=== PATIENT | female | born 1940 | race Caucasian/White ===

== ENCOUNTER 2017-08-23 21:44 | Inpatient (IN) | payer MEDICARE, OTHER ==
[2017-08-23] MEDS ORDERED: Morphine VIAL* 4 MG/ML VIAL (1 ml vial) IV PRN (22:17)
[2017-08-23 22:38] LABS: Hematocrit 40 % (35-47); Hemoglobin 13.3 g/dl (12.0-16.0); Mean Corpuscular HGB Conc 33 g/dl (31-36); Mean Corpuscular Hemoglobin 30 pg (27-31); Mean Corpuscular Volume 91 fL (80-97); Mean Platelet Volume 7.6 um3 (7.4-10.4); Platelet Count 332 10^3/ul (150-450); Red Blood Count 4.43 10^6/ul (4.0-5.4); Red Cell Distribution Width 15 % (10.5-15)
[2017-08-23 22:50] LABS: EGFR Non-African American 35.4 (>60)
[2017-08-23 22:58] LABS: ABS Basophils 0.1 10^3/ul (0-0.2); ABS Eosinophils 0 10^3/ul (0-0.6); ABS Lymphocytes 0.6 10^3/ul (1.0-4.8); ABS Monocytes 1.4 10^3/ul (0-0.8); ABS Neutrophils 18.9 10^3/ul (1.5-7.7); ABS Nucleated RBC 0 10^3/ul; Eosinophil % 0.2 % (0-6); Lymphocyte % 2.9 % (25-47); Nucleated Red Blood Cells % 0
[2017-08-23] MEDS ORDERED: Iodixanol* (CONTRAST) 320 MG/ML 100 ML SDV IV ONE (23:00)
[2017-08-24] MEDS ORDERED: Ondansetron 40 MG VIAL* 2 MG/ML 20 ML VIAL IV PRN (02:48)
[2017-08-24] MEDS ORDERED: Acetaminophen TAB* 325 MG PO PRN (02:48)
[2017-08-24] MEDS: Heparin VIAL(*) 5000 UNITS/ML VIAL (FIVE THOUSAND) SUBCUT SCH ×3 (05:38→22:28)
[2017-08-24 05:48] LABS: ABS Basophils 0 10^3/ul (0-0.2); ABS Eosinophils 0 10^3/ul (0-0.6); ABS Lymphocytes 0.3 10^3/ul (1.0-4.8); ABS Monocytes 1.2 10^3/ul (0-0.8); ABS Neutrophils 19.9 10^3/ul (1.5-7.7); ABS Nucleated RBC 0 10^3/ul; Eosinophil % 0 % (0-6); Hematocrit 36 % (35-47); Lymphocyte % 1.2 % (25-47); Mean Corpuscular HGB Conc 33 g/dl (31-36); Mean Corpuscular Hemoglobin 30 pg (27-31); Mean Corpuscular Volume 91 fL (80-97); Mean Platelet Volume 7.6 um3 (7.4-10.4); Nucleated Red Blood Cells % 0; Platelet Count 281 10^3/ul (150-450); Red Blood Count 4.03 10^6/ul (4.0-5.4); Red Cell Distribution Width 15 % (10.5-15); White Blood Count 21.4 10^3/ul (3.5-10.8)
[2017-08-24] MEDS: Morphine VIAL* 4 MG/ML VIAL (1 ml vial) IV PRN ×2 (05:49→11:28)
[2017-08-24 06:18] LABS: EGFR Non-African American 33.8 (>60)
--- NOTE | 2017-08-24 07:35 | HP ---
CC: Louise Andino MD* HISTORY AND PHYSICAL: DATE OF ADMISSION: 08/24/17. TIME OF EVALUATION: 0200. PRIMARY CARE PHYSICIAN: Louise Andino MD. CHIEF COMPLAINT: Abdominal pain. HISTORY OF PRESENT ILLNESS: This is a 76-year-old female with a past medical history of COPD and recent stent graft placement to her abdominal aortic aneurysm, who presents to the emergency room with left lower quadrant pain. The patient states she has chronic constipation. She states she normally has a bowel movement one time a week. When she runs in to this issue, she takes laxatives. She takes a stool softener daily. Her last bowel movement was on . This morning she was concerned that she has still not had a bowel movement. She took some laxatives in the morning that did not help. After lunch, still no bowel movement. She took more laxatives, began having significant pain in her left lower quadrant, increasing gas. She does have a small stool, but no improvement in her pain. She came to the emergency room with worsening pain. She also had a large bowel movement. She states it was loose. In the emergency room, no improvement in her pain and she developed left hip pain radiating down to her foot that flaring up of her sciatica. She states she was just in [facility] on 08/12/17 for stent placement of her aortic aneurysm. She was discharged on 08/14/17 and was doing well. She was staying with her sister well recuperating when this all occurred. She did have some nausea, vomiting. She states she vomited four times. Decrease in appetite. No chest pain or shortness of breath. No bright red blood per rectum. No melena. She does state she is due for a colonoscopy, she has had one in the past. Otherwise, review of systems is negative. In the emergency room, the patient had labs, imaging. She was given morphine and referred to the hospitalist service for further evaluation. PAST MEDICAL HISTORY: 1. History of stent placement to the abdominal aortic aneurysm at [facility] done on per patient is 08/12/17. 2. History of constipation. 3. History of colitis. 4. Hypertension. 5. Hyperlipidemia. 6. COPD. 7. Arthritis. 8. Sciatica. 9. CKD. MEDICATIONS: 1. Hydrochlorothiazide 25 mg p.o. daily. 2. Tramadol 100 mg p.o. q.6 hours as needed. 3. Tizanidine 4 mg q.6 hours as needed. 4. Spironolactone 25 mg p.o. daily. 5. Simvastatin 20 mg at bedtime. 6. Oxybutynin 5 mg p.o. t.i.d. 7. Singulair 10 mg daily. 8. Lisinopril 5 mg daily. 9. Breo Ellipta one puff inhale daily. 10. Celexa 40 mg daily. 11. Atenolol 25 mg p.o. daily. 12. Aspirin 81 mg p.o. daily. 13. Albuterol 108 mcg inhaled daily as needed. ALLERGIES: WELLBUTRIN. FAMILY HISTORY: Father is from colon cancer at age 50 and mother from breast cancer. SOCIAL HISTORY: The patient normally lives at home. She states she does have some difficulty getting around, but is otherwise independent. She ambulates with a cane. Currently is staying with her sister while recuperating from her recent surgery at [facility]. She quit smoking five years ago. At that time , she smoked a pack per day for five years. No alcohol use or illicit drug use. She is a retired legal administrative secretary. Her healthcare proxy is her son, Fadi Sweet. She is . CODE STATUS: She confirms she is a DNR/DNI. We will complete the MOLST form this evening. REVIEW OF SYSTEMS: A 14-point review of systems as mentioned in the HPI, otherwise negative. PHYSICAL EXAMINATION GENERAL: No acute distress, resting comfortably. VITAL SIGNS: Temp 98.8, pulse rate 105, respiratory rate 18, oxygen saturation 94% on room air, and blood pressure 126/65. HEENT: Head: Normocephalic. Pupils are equal and reactive, anicteric. Oropharynx: Mucous membranes are moist. NECK: Supple, no adenopathy. RESPIRATORY: Diminished breath sounds. No wheezes, rhonchi, or rales. CARDIAC: Regular rate and rhythm. Soft systolic murmur more pronounced at the sternal base. ABDOMEN: Hypoactive bowel sounds, soft, mild firmness, tenderness in the left lower quadrant, more pronounced there than in the right region. No rebound or guarding. EXTREMITIES: Trace pretibial edema. +1 DPs. NEUROLOGIC: Alert and oriented x3. No gross focal neurologic deficits. LABORATORY DATA: White count 21, hemoglobin 13.3, hematocrit 40, platelets 332. Sodium 134, potassium 4.8, chloride 100, bicarb 23, BUN 31, creatinine 1.44. CRP is 34. Radiographic Data: A 4.0 cm ascending aortic aneurysm, status post stent graft placement through a 5 cm aortic aneurysm without inflammation. Small pleural effusion with right lower lobe atelectasis or pneumonia. Right renal atrophy may be secondary to renal artery stenosis. Mild diffuse colitis may be due to infection or inflammatory processes. Right-sided colonic pneumatosis considered very unlikely to represent bowel ischemia. ASSESSMENT AND PLAN: This is a 76-year-old female with a recent graft placement to her abdominal aortic aneurysm and history of constipation, presents to the emergency room with worsening left lower quadrant pain in the setting of loose stools, nausea and vomiting. 1. Left lower quadrant abdominal pain. Assessment and findings: Consistent with colitis. Concern is for C. diff colitis in the setting of recent hospitalization. Suspect that she may have had some prophylactic antibiotics for her surgery less likely ischemic. Based on the CAT scan findings, she does have an elevated white count and acute kidney injury. Plan: We will obtain a C. diff study. Once it is negative, consider empiric antibiotics if no improvement, we will continue her on IV fluids and repeat her labs in the morning. 2. Acute kidney injury. We do not have a recent creatinine on this patient. She does state she has a history of kidney problems. I suspect this is prerenal azotemia. We will continue fluids. Renally dose her medications. Continue to hold her hydrochlorothiazide and spironolactone and lisinopril. 3. Hypertension. As mentioned, hold her hydrochlorothiazide, spironolactone, and lisinopril. Continue her atenolol and aspirin. 4. Chronic obstructive pulmonary disease. Continue her inhaler regimen. 5. Hyperlipidemia. Continue with simvastatin. 6. FEN: Clear liquid diet. 7. DVT prophylaxis: The patient scores high risk. Place her on heparin subcu t.i.d. 8. Code status: The patient confirms she is a DNR/DNI. We will have her fill out the MOLST form this evening. PATIENT TIME: Greater than 45 minutes was spent doing history and physical, more than half the time spent in direct patient contact. [id number]/[facility] #: [id number] [facility]
--- NOTE | 2017-08-24 07:56 | RAD ---
CLINICAL HISTORY: Abdominal pain COMPARISON: None TECHNIQUE: Multiple contiguous axial CT scans were obtained of the abdomen and pelvis after the administration of intravenous contrast. Coronal and sagittal multiplanar reformations are submitted for review. Oral contrast was administered. Delayed images were obtained through the abdomen and pelvis. FINDINGS: LUNG BASES: There is a trace right pleural effusion. LIVER: There is low-attenuation lesion of the liver that measure simple fluid in attenuation and left lobe measuring 1 cm in size. BILE DUCTS: There is no intrahepatic or extrahepatic biliary dilatation. GALLBLADDER: The gallbladder is normal, without pericholecystic inflammatory change. PANCREAS: The pancreas is normal, without mass or ductal dilatation. SPLEEN: There are calcified granulomas of the spleen. UPPER GI TRACT: Evaluation of the gastrointestinal tract is limited by incomplete gastric distention. The upper GI tract is unremarkable. SMALL BOWEL AND MESENTERY: The small bowel is normal in contour, course, and caliber. There is no obstruction or dilatation. COLON: There is mild diffuse mucosal thickening. The pneumatosis noted on the pulmonary report as felt to represent gas within the lumen of the bowel. ADRENALS: Normal bilaterally. KIDNEYS: The right kidney is atrophic. There is a simple cyst of left kidney. Vascular calcifications are noted. There are nonobstructing renal calyceal stones on the left. BLADDER: The bladder is collapsed and is not well evaluated. PELVIC ORGANS: The pelvic organs are not visualized. AORTA: The patient is status post aortic stent graft. There is thrombosis of the residual aneurysm sac. There is no appreciable delayed filling of the visualized portion of the aneurysm sac to suggest endoleak. IVC: Unremarkable LYMPH NODES: There is no lymphadenopathy by size criteria. ABDOMINAL WALL: There is no evidence for abdominal wall hernia. BONES AND SOFT TISSUES: There are mild diffuse degenerative changes. OTHER: None IMPRESSION: 1. DIFFUSE MUCOSAL THICKENING OF THE COLON SUGGESTIVE OF COLITIS. 2. THE PNEUMATOSIS NOTED WITHIN THE PRELIMINARY REPORT IS FELT TO REPRESENT INTRALUMINAL GAS. 3. ATHEROSCLEROSIS, STATUS POST AORTIC STENT GRAFT. 4. SMALL RIGHT PLEURAL EFFUSION.
[2017-08-24] MEDS ORDERED: Atenolol TAB* 25 MG PO SCH (09:00)
[2017-08-24] MEDS ORDERED: Fluticasone/Vilanterol MDI(NF) 100/25 MDI INH SCH (09:00)
[2017-08-24] MEDS: Oxybutynin TAB* 5 MG PO SCH ×3 (09:03→20:54)
[2017-08-24] MEDS: Aspirin EC TAB* 81 MG TAB.EC PO SCH (09:03)
[2017-08-24] MEDS: Citalopram TAB* 40 MG PO SCH (09:03)
[2017-08-24] MEDS: Montelukast Sodium TAB* 10 MG PO SCH (09:10)
--- NOTE | 2017-08-24 09:38 | PN ---
Subjective Date of Service: 08/24/17 Interval History: reports LLQ abd pain, denies n/v/d, denies chest pain or shortness of breath. Family History: Unchanged from Admission Social History: Unchanged from Admission Past Medical History: Unchanged from Admission Objective Active Medications: Acetaminophen (Tylenol Tab*) 650 mg PO Q4H PRN PRN Reason: FEVER/PAIN Al Hydrox/Mg Hydrox/Simethicone (Maalox Plus*) 30 ml PO Q6H PRN PRN Reason: INDIGESTION Albuterol (Ventolin Hfa Inhaler*) 1 puff INH DAILY PRN PRN Reason: SHORTNESS OF BREATH Aspirin (Aspirin Ec Tab*) 81 mg PO DAILY [facility] Last Admin: 08/24/17 09:03 Dose: 81 mg Atenolol (Tenormin Tab*) 25 mg PO DAILY [facility] Last Admin: 08/24/17 09:03 Dose: 25 mg Atorvastatin Calcium (Lipitor*) 10 mg PO QPM [facility] Citalopram Hydrobromide (Celexa Tab*) 40 mg PO DAILY [facility] Last Admin: 08/24/17 09:03 Dose: 40 mg Docusate Sodium (Colace Cap*) 100 mg PO BID PRN PRN Reason: CONSTIPATION Fluticasone/Vilanterol (Breo Ellipta Mdi 100/25(Nf)) 1 puff INH DAILY [facility] Heparin Sodium (Porcine) (Heparin Vial(*)) 5,000 units SUBCUT Q8HR [facility] Last Admin: 08/24/17 05:38 Dose: 5,000 units Lactated Ringer's (Lactated Ringers 1000 Ml Bag*) 1,000 mls @ 125 mls/hr IV PER RATE [facility] Last Admin: 08/24/17 05:38 Dose: 125 mls/hr Montelukast Sodium (Singulair Tab*) 10 mg PO DAILY [facility] Last Admin: 08/24/17 09:10 Dose: Not Given Morphine Sulfate (Morphine Vial*) 4 mg IV Q4H PRN PRN Reason: PAIN Last Admin: 08/23/17 23:01 Dose: 4 mg Morphine Sulfate (Morphine Vial*) 2 mg IV Q4H PRN PRN Reason: PAIN Last Admin: 08/24/17 05:49 Dose: 2 mg Ondansetron HCl (Zofran 40 Mg Vial*) 4 mg IV Q4H PRN PRN Reason: NAUSEA/VOMITING Oxybutynin Chloride (Ditropan Tab*) 5 mg PO TID [facility] Last Admin: 08/24/17 09:03 Dose: 5 mg Oxycodone/Acetaminophen (Percocet 5/325 Tab*) 1 tab PO Q4H PRN PRN Reason: Pain Senna (Senokot Tab*) 1 tab PO BID PRN PRN Reason: CONSTIPATION Tramadol HCl (Ultram*) 100 mg PO Q6HR PRN PRN Reason: PAIN Vital Signs - 8 hr 08/24/17 08/24/17 08/24/17 02:55 03:05 03:06 Temperature Pulse Rate 85 85 Respiratory Rate Blood Pressure 129/80 116/58 (mmHg) O2 Sat by Pulse 89 89 88 Oximetry 08/24/17 08/24/17 08/24/17 03:22 03:52 04:00 Temperature Pulse Rate 83 83 82 Respiratory Rate Blood Pressure 123/76 103/83 (mmHg) O2 Sat by Pulse 88 89 89 Oximetry 08/24/17 08/24/17 08/24/17 04:19 04:20 04:39 Temperature 97.4 F 97.6 F 97.6 F Pulse Rate 83 84 80 Respiratory 16 20 Rate Blood Pressure 103/83 127/80 127/80 (mmHg) O2 Sat by Pulse 90 94 89 Oximetry 08/24/17 08/24/17 08/24/17 05:49 05:53 06:49 Temperature Pulse Rate Respiratory 20 20 18 Rate Blood Pressure (mmHg) O2 Sat by Pulse Oximetry 08/24/17 08/24/17 08/24/17 06:50 07:35 08:57 Temperature 98.4 F Pulse Rate 73 66 Respiratory 18 16 Rate Blood Pressure 99/56 118/64 (mmHg) O2 Sat by Pulse 93 Oximetry 08/24/17 09:08 Temperature Pulse Rate Respiratory 18 Rate Blood Pressure (mmHg) O2 Sat by Pulse Oximetry Oxygen Devices in Use Now: None Appearance: elderly female , alert and oriented , no acute distress Eyes: No Scleral Icterus Ears/Nose/Mouth/Throat: Clear Oropharnyx, Mucous Membranes Moist Neck: NL Appearance and Movements; NL JVP, Trachea Midline Respiratory: Symmetrical Chest Expansion and Respiratory Effort, Clear to Auscultation Cardiovascular: NL Sounds; No Murmurs; No JVD, No Edema Abdominal: - - Left abd tenderness with palpation, BS +x4, abd soft Extremities: No Edema, No Clubbing, Cyanosis Skin: No Rash or Ulcers Neurological: Alert and Oriented x 3 Nutrition: Taking PO's Result Diagrams: 08/24/17 16:28 08/24/17 05:30 Assess/Plan/Problems-Billing Assessment: Ms. Sweet is a 76 y.o female with past medical hx of colitis, HTN, HLD, COPD , CKD, and s/p AAA repair on 08/12/17 who presented to the emergency room with LLQ abd pain. CT scan colitis - Patient Problems (1) Colitis Current Visit: Yes Status: Acute Code(s): K52.9 - NONINFECTIVE GASTROENTERITIS AND COLITIS, UNSPECIFIED SNOMED Code(s): 18869799 Comment: - continues to have LLQ abd pain- CT with colitis - denies black or tarry stools , denies blood in the stools - will continue IVF, BP soft 90's given 0.9% normal saline bolus x1 - repeat SPB 108 - zosyn IV started - GI consulted- requested 2 view ABD and will see in the AM (2) Leukocytosis Current Visit: Yes Status: Acute Code(s): D72.829 - ELEVATED WHITE BLOOD CELL COUNT, UNSPECIFIED SNOMED Code(s): 972336109 Comment: WBc's 21.4 - repeat this after down to 17.1 suspect this is related to colitis (3) ABE (acute kidney injury) Current Visit: Yes Status: Acute Code(s): N17.9 - ACUTE KIDNEY FAILURE, UNSPECIFIED SNOMED Code(s): 60458656 Comment: -will avoid nephrotoxic mediations -will continue hydration - will repeat BMP in AM (4) HTN (hypertension) Current Visit: Yes Status: Acute Code(s): I10 - ESSENTIAL (PRIMARY) HYPERTENSION SNOMED Code(s): 10171635 Comment: -continue metoprolol -hold lisinopril and HCTZ - monitor BP's (5) HLD (hyperlipidemia) Current Visit: Yes Status: Acute Code(s): E78.5 - HYPERLIPIDEMIA, UNSPECIFIED SNOMED Code(s): 33746780 Comment: continue Lipitor (6) COPD (chronic obstructive pulmonary disease) Current Visit: Yes Status: Acute Code(s): J44.9 - CHRONIC OBSTRUCTIVE PULMONARY DISEASE, UNSPECIFIED SNOMED Code(s): 50231035 Comment: - albuterol and dulera inhalers (7) DVT prophylaxis Current Visit: Yes Status: Acute Code(s): GXP9408 - SNOMED Code(s): 486922180 Comment: Heparin SQ (8) DNR (do not resuscitate) Current Visit: Yes Status: Acute Status and Disposition: inpatient
[2017-08-24] MEDS: Albuterol HFA INHALER* 8 gm MDI INH PRN ×2 (12:22→21:22)
[2017-08-24 12:40] LABS: Urine Appearance Cloudy; Urine Blood Negative (Negative); Urine Color Amber; Urine Ketones Negative (Negative); Urine Protein 1+(30 mg/dL) (Negative); Urine Specific Gravity 1.041 (1.010-1.030); Urine Urobilinogen Positive (Negative)
[2017-08-24] MEDS: oxyCODONE/Acetamin 5/325 MG* TAB PO PRN ×2 (15:07→20:54)
[2017-08-24] MEDS ORDERED: NS 0.9% 500 ML* 500 ML IV ONE (16:11)
[2017-08-24] MEDS ORDERED: Piperacillin/Tazobac ADVAN(*) 3.375 GM in NS 0.9% 100 ML* 100 ML IVPB ONE (16:31)
--- NOTE | 2017-08-24 16:35 | PN ---
Subjective Date of Service: 08/24/17 Interval History: Patients blood pressure noted to be in the 60's in the vital signs, Nurse Maren Arguello reports that the patient's BP was rechecked with a manual BP and that the readings were found to be false low readings. Family History: Unchanged from Admission Social History: Unchanged from Admission Past Medical History: Unchanged from Admission Objective Active Medications: Acetaminophen (Tylenol Tab*) 650 mg PO Q4H PRN PRN Reason: FEVER/PAIN Al Hydrox/Mg Hydrox/Simethicone (Maalox Plus*) 30 ml PO Q6H PRN PRN Reason: INDIGESTION Albuterol (Ventolin Hfa Inhaler*) 1 puff INH DAILY PRN PRN Reason: SHORTNESS OF BREATH Last Admin: 08/24/17 12:22 Dose: 1 puff Aspirin (Aspirin Ec Tab*) 81 mg PO DAILY [facility] Last Admin: 08/24/17 09:03 Dose: 81 mg Atenolol (Tenormin Tab*) 25 mg PO DAILY [facility] Last Admin: 08/24/17 09:03 Dose: 25 mg Atorvastatin Calcium (Lipitor*) 10 mg PO QPM [facility] Citalopram Hydrobromide (Celexa Tab*) 40 mg PO DAILY [facility] Last Admin: 08/24/17 09:03 Dose: 40 mg Docusate Sodium (Colace Cap*) 100 mg PO BID PRN PRN Reason: CONSTIPATION Heparin Sodium (Porcine) (Heparin Vial(*)) 5,000 units SUBCUT Q8HR [facility] Last Admin: 08/24/17 13:55 Dose: 5,000 units Lactated Ringer's (Lactated Ringers 1000 Ml Bag*) 1,000 mls @ 125 mls/hr IV PER RATE [facility] Last Admin: 08/24/17 15:09 Dose: 125 mls/hr Sodium Chloride (Ns 0.9% 500 Ml*) 500 mls @ 1,000 mls/hr IV ONCE ONE Stop: 08/24/17 16:40 Last Admin: 08/24/17 16:23 Dose: 1,000 mls/hr Piperacillin Sod/Tazobactam (Sod 3.375 gm/ Sodium Chloride) 100 mls @ 200 mls/ hr IVPB ONCE ONE Stop: 08/24/17 17:00 Mometasone Furoate/Formoterol Fumar (Dulera 200/5 Mdi*) 2 puff INH BID [facility] Montelukast Sodium (Singulair Tab*) 10 mg PO DAILY [facility] Last Admin: 08/24/17 09:10 Dose: Not Given Morphine Sulfate (Morphine Vial*) 4 mg IV Q4H PRN PRN Reason: PAIN Last Admin: 08/23/17 23:01 Dose: 4 mg Morphine Sulfate (Morphine Vial*) 2 mg IV Q4H PRN PRN Reason: PAIN Last Admin: 08/24/17 11:28 Dose: 2 mg Ondansetron HCl (Zofran 40 Mg Vial*) 4 mg IV Q4H PRN PRN Reason: NAUSEA/VOMITING Oxybutynin Chloride (Ditropan Tab*) 5 mg PO TID [facility] Last Admin: 08/24/17 13:55 Dose: 5 mg Oxycodone/Acetaminophen (Percocet 5/325 Tab*) 1 tab PO Q4H PRN PRN Reason: Pain Last Admin: 08/24/17 15:07 Dose: 1 tab Pharmacy Consult (Zosyn Per Pharmacy*) 1 note FOLLOW UP .ZOSYN PER PHARMACY [facility] Senna (Senokot Tab*) 1 tab PO BID PRN PRN Reason: CONSTIPATION Tramadol HCl (Ultram*) 100 mg PO Q6HR PRN PRN Reason: PAIN Vital Signs - 8 hr 08/24/17 08/24/17 08/24/17 08:57 09:08 11:12 Temperature 98.3 F Pulse Rate 66 70 Respiratory 18 16 Rate Blood Pressure 118/64 67/45 (mmHg) O2 Sat by Pulse 93 Oximetry 08/24/17 08/24/17 08/24/17 11:16 11:20 11:28 Temperature Pulse Rate Respiratory 18 Rate Blood Pressure 98/68 104/66 (mmHg) O2 Sat by Pulse Oximetry 08/24/17 08/24/17 08/24/17 12:17 15:07 15:26 Temperature Pulse Rate 76 Respiratory 18 16 Rate Blood Pressure 66/45 (mmHg) O2 Sat by Pulse Oximetry 08/24/17 08/24/17 08/24/17 15:49 16:05 16:10 Temperature 98.3 F Pulse Rate 72 Respiratory 18 18 Rate Blood Pressure 90/62 108/66 (mmHg) O2 Sat by Pulse 96 Oximetry Oxygen Devices in Use Now: None Result Diagrams: 08/24/17 05:30 08/24/17 05:30 Assess/Plan/Problems-Billing Assessment: Ms. Sweet is a 76 y.o female with past medical hx of colitis, HTN, HLD, COPD , CKD, and s/p AAA repair on 08/12/17 who presented to the emergency room with LLQ abd pain. CT scan colitis - Patient Problems (1) Colitis Current Visit: Yes Status: Acute Code(s): K52.9 - NONINFECTIVE GASTROENTERITIS AND COLITIS, UNSPECIFIED SNOMED Code(s): 01302777 Comment: - continues to have LLQ abd pain - will continue (2) ABE (acute kidney injury) Current Visit: Yes Status: Acute Code(s): N17.9 - ACUTE KIDNEY FAILURE, UNSPECIFIED SNOMED Code(s): 12752210 Comment: -will avoid nephrotoxic mediations -will continue hydration (3) HTN (hypertension) Current Visit: Yes Status: Acute Code(s): I10 - ESSENTIAL (PRIMARY) HYPERTENSION SNOMED Code(s): 37069009 Comment: -continue -hold - monitor BP's (4) HLD (hyperlipidemia) Current Visit: Yes Status: Acute Code(s): E78.5 - HYPERLIPIDEMIA, UNSPECIFIED SNOMED Code(s): 66128818 Comment: continue Lipitor (5) COPD (chronic obstructive pulmonary disease) Current Visit: Yes Status: Acute Code(s): J44.9 - CHRONIC OBSTRUCTIVE PULMONARY DISEASE, UNSPECIFIED SNOMED Code(s): 78158221 Comment: -continue (6) DVT prophylaxis Current Visit: Yes Status: Acute Code(s): THG2040 - SNOMED Code(s): 383291228 (7) DNR (do not resuscitate) Current Visit: Yes Status: Acute
[2017-08-24 16:50] LABS: Hematocrit 30 % (35-47); Hemoglobin 9.9 g/dl (12.0-16.0); Mean Corpuscular HGB Conc 33 g/dl (31-36); Mean Corpuscular Hemoglobin 30 pg (27-31); Mean Corpuscular Volume 90 fL (80-97); Mean Platelet Volume 7.9 um3 (7.4-10.4); Platelet Count 235 10^3/ul (150-450); Red Blood Count 3.32 10^6/ul (4.0-5.4); Red Cell Distribution Width 15 % (10.5-15); White Blood Count 17.1 10^3/ul (3.5-10.8)
[2017-08-24] MEDS ORDERED: Zosyn per Pharmacy* NOTE FOLLOW UP SCH (17:00)
[2017-08-24] MEDS: Atorvastatin* 10 MG TAB PO SCH (17:32)
[2017-08-24 17:43] LABS: ABS Basophils 0 10^3/ul (0-0.2); ABS Eosinophils 0 10^3/ul (0-0.6); ABS Lymphocytes 0.7 10^3/ul (1.0-4.8); ABS Monocytes 1.6 10^3/ul (0-0.8); ABS Neutrophils 14.7 10^3/ul (1.5-7.7); ABS Nucleated RBC 0 10^3/ul; Eosinophil % 0.1 % (0-6); Lymphocyte % 4.2 % (25-47); Nucleated Red Blood Cells % 0
--- NOTE | 2017-08-24 20:45 | RAD ---
Indication: LEFT lower quadrant abdominal pain. History of diverticulitis, occasional constipation, and diarrhea. Comparison: August 23, 2017 CT. Technique: Supine and LEFT lateral decubitus views of the abdomen. Report: Moderate elevation of the RIGHT hemidiaphragm . No radiographic evidence for free air. Persistent moderate gaseous distention of the stomach. Gas distention of the transverse and LEFT colon without significant dilatation. Suggestion of long segment mild mucosal thickening of the LEFT colon corresponding with CT finding of one day prior. Negative for suspicious calcifications. Aortoiliac stent graft. Unremarkable soft tissue contours. IMPRESSION: 1. Negative for free air. 2. Persistent moderate gaseous distention of the stomach. Gas distention of the transverse and LEFT colon without significant dilatation. Suggestion of long segment mild mucosal thickening of the LEFT colon corresponding with CT finding of one day prior concerning for nonspecific colitis. Given extensive peripheral vascular disease consider potential ischemic colitis.
[2017-08-24] MEDS: ZOSYN 3.375 GM Q8H per EXTENDED INFUSION IVPB SCH ×2 (20:57)
[2017-08-24] MEDS: Mometasone/Formoter 200/5 MDI INH SCH (21:14)
[2017-08-25] MEDS: Albuterol HFA INHALER* 8 gm MDI INH PRN ×2 (01:46→07:26)
[2017-08-25] MEDS: oxyCODONE/Acetamin 5/325 MG* TAB PO PRN (01:48)
--- NOTE | 2017-08-25 04:26 | PN ---
Progress Note - Progress Note Date of Service: 08/25/17 Note: Paged for soft BP's. Patient asymptomatic. Will hold AM atenolol and give 500 cc LR bolus
[2017-08-25 05:44] LABS: ABS Basophils 0 10^3/ul (0-0.2); ABS Eosinophils 0.2 10^3/ul (0-0.6); ABS Lymphocytes 0.6 10^3/ul (1.0-4.8); ABS Monocytes 0.9 10^3/ul (0-0.8); ABS Neutrophils 11.4 10^3/ul (1.5-7.7); ABS Nucleated RBC 0 10^3/ul; Eosinophil % 1.2 % (0-6); Hematocrit 28 % (35-47); Hemoglobin 9.2 g/dl (12.0-16.0); Lymphocyte % 4.5 % (25-47); Mean Corpuscular HGB Conc 33 g/dl (31-36); Mean Corpuscular Hemoglobin 30 pg (27-31); Mean Corpuscular Volume 90 fL (80-97); Mean Platelet Volume 7.8 um3 (7.4-10.4); Nucleated Red Blood Cells % 0; Platelet Count 221 10^3/ul (150-450); Red Blood Count 3.07 10^6/ul (4.0-5.4); Red Cell Distribution Width 15 % (10.5-15); White Blood Count 13.1 10^3/ul (3.5-10.8)
[2017-08-25] MEDS: ZOSYN 3.375 GM Q8H per EXTENDED INFUSION IVPB SCH ×6 (05:59→21:35)
[2017-08-25] MEDS: Heparin VIAL(*) 5000 UNITS/ML VIAL (FIVE THOUSAND) SUBCUT SCH ×3 (05:59→21:35)
[2017-08-25 06:04] LABS: EGFR Non-African American 36.3 (>60)
[2017-08-25] MEDS: Oxybutynin TAB* 5 MG PO SCH ×3 (07:24→21:34)
[2017-08-25] MEDS: Montelukast Sodium TAB* 10 MG PO SCH (07:24)
[2017-08-25] MEDS: Citalopram TAB* 40 MG PO SCH (07:24)
[2017-08-25] MEDS: Aspirin EC TAB* 81 MG TAB.EC PO SCH (07:24)
[2017-08-25] MEDS: Mometasone/Formoter 200/5 MDI INH SCH ×2 (07:25→20:45)
--- NOTE | 2017-08-25 11:06 | PN ---
Subjective Date of Service: 08/25/17 Interval History: Ms. Sweet reports continued left lower quadrant pain and right leg and hip pain with intermittent associated numbness. She also reports chronic right knee pain. She has chronic urinary incontinence mostly related to having difficulty getting to bathroom quickly enough. She denies urinary retention. She denies bowel incontinence. She has had no diarrhea. She denies nausea. She denies chest pain or SOB. Family History: Unchanged from Admission Social History: Unchanged from Admission Past Medical History: Unchanged from Admission Objective Active Medications: Acetaminophen (Tylenol Tab*) 650 mg PO Q4H PRN Al Hydrox/Mg Hydrox/Simethicone (Maalox Plus*) 30 ml PO Q6H PRN Albuterol (Ventolin Hfa Inhaler*) 1 puff INH DAILY PRN Aspirin (Aspirin Ec Tab*) 81 mg PO DAILY [facility] Atorvastatin Calcium (Lipitor*) 10 mg PO QPM [facility] Citalopram Hydrobromide (Celexa Tab*) 40 mg PO DAILY [facility] Docusate Sodium (Colace Cap*) 100 mg PO BID PRN Heparin Sodium (Porcine) (Heparin Vial(*)) 5,000 units SUBCUT Q8HR [facility] Lactated Ringer's (Lactated Ringers 1000 Ml Bag*) 1,000 mls @ 125 mls/hr IV PER RATE [facility] Piperacillin Sod/Tazobactam (Sod 3.375 gm/ Sodium Chloride) 100 mls @ 25 mls/ hr IVPB Q8H [facility] Mometasone Furoate/Formoterol Fumar (Dulera 200/5 Mdi*) 2 puff INH BID [facility] Montelukast Sodium (Singulair Tab*) 10 mg PO DAILY [facility] Morphine Sulfate (Morphine Vial*) 4 mg IV Q4H PRN Morphine Sulfate (Morphine Vial*) 2 mg IV Q4H PRN Ondansetron HCl (Zofran 40 Mg Vial*) 4 mg IV Q4H PRN Oxybutynin Chloride (Ditropan Tab*) 5 mg PO TID [facility] Oxycodone/Acetaminophen (Percocet 5/325 Tab*) 1 tab PO Q4H PRN Pharmacy Consult (Zosyn Per Pharmacy*) 1 note FOLLOW UP .ZOSYN PER PHARMACY [facility] Senna (Senokot Tab*) 1 tab PO BID PRN Tramadol HCl (Ultram*) 100 mg PO Q6HR PRN Vital Signs: Temp Pulse Resp BP Pulse Ox 98.1 F 79 18 98/59 97 08/25/17 07:32 08/25/17 07:32 08/25/17 09:02 08/25/17 07:32 08/25/17 07:32 Oxygen Devices in Use Now: Nasal Cannula Appearance: Elderly female lying in bed in NAD Eyes: No Scleral Icterus Ears/Nose/Mouth/Throat: Mucous Membranes Moist Neck: NL Appearance and Movements; NL JVP Respiratory: Symmetrical Chest Expansion and Respiratory Effort, Clear to Auscultation Cardiovascular: NL Sounds; No Murmurs; No JVD, No Edema Abdominal: - - Tender to palpation in left lower quadrant, no rebound, no guarding, BS+, no distention Lymphatic: No Cervical Adenopathy Extremities: No Edema Skin: No Rash or Ulcers Neurological: Alert and Oriented x 3, - - Normal passive ROM to right hip, pain with palpation over SI joint on right, describes numbness to right foot and calf , normal sensation to right thigh, describes pain to right knee. Otherwise +5 strength to L LE and B UEs. Nutrition: Taking PO's Result Diagrams: 08/25/17 05:25 08/25/17 05:25 Assess/Plan/Problems-Billing Assessment: Ms. Sweet is a 76 yo female with PMH of colitis, HTN, HLD, COPD, CKD, and s/ p AAA repair on 08/12/17 who presented to the emergency room with LLQ abd pain with CT scan showing colitis. - Patient Problems (1) Colitis Comment: - Continues to have LLQ abd pain. Leukocytosis resolving, remains relatively hypotensive with SBP 90s. - Suspect ischemic colitis in setting of recent AAA repair, though denies black or tarry stools. As patient without loose stool, cancel cdiff. GI consult pending. - Continue IVF. - Continue zosyn until seen by GI. (2) Hyponatremia Comment: - Na down from 134 to 129 since admission despite NS IVF. - Noted some mild hyponatremia in the past, was on hctz outpatient. No hyponatremia recently per Dr. Andino's records. - Monitor closely. (3) ABE (acute kidney injury) Comment: - Unchanged since admission. - Continue to suspect prerenal cause due to illness in setting of diuretic use. - FeNa suggestive of ATN but this is in the setting of recent diuretic use. - Avoid nephrotoxins and continue hydration. (4) HTN (hypertension) Comment: - SBP 90s. - Hold spironolactone, lisinopril and HCTZ. (5) Anemia Comment: - Hgb down from 13 to 9 with IVF since admission - Stool occult blood negative, check iron studies. (6) Pain of right lower extremity Comment: - Patient a difficult historian but seems to report exacerbation of R leg pain with numbness since her abdominal aortic aneurysm surgery on 08/12/17. Denies bowel incontinence, has chronic bladder incontinence, no evidence of retention. - Suspect lumbar spine as origin of pain but patient refuses MRI due to claustrophobia, reports 3 unsuccessful attempts to perform MRI. - PT following. (7) COPD (chronic obstructive pulmonary disease) Comment: - No evidence of exacerbation. - Continue albuterol and dulera inhalers. (8) HLD (hyperlipidemia) Comment: - Continue atorvastatin. (9) DVT prophylaxis Comment: Heparin SQ (10) DNR (do not resuscitate) Comment: Status and Disposition: Inpatient. Anticipate discharge to home when medically stable.
[2017-08-25] MEDS: traMADol TAB* 50 MG PO PRN (12:36)
[2017-08-25] MEDS: Atorvastatin* 10 MG TAB PO SCH (16:08)
[2017-08-25 16:23] LABS: EGFR Non-African American 46.3 (>60)
[2017-08-25] MEDS: Morphine VIAL* 4 MG/ML VIAL (1 ml vial) IV PRN (21:33)
[2017-08-25] MEDS: Senna TAB PO PRN (21:35)
--- NOTE | 2017-08-26 00:25 | CONS ---
GASTROENTEROLOGY CONSULT: DATE: CONSULTING PHYSICIAN: Rachel Walsh MD REASON FOR CONSULT: Left lower quadrant abdominal pain. HISTORY: This 76-year-old woman who 2 weeks ago had stenting of an abdominal aortic aneurysm, seemed to be okay and convalescing in her sister's home until 2 days ago. She felt constipated. This is not unusual, so she took her usual laxative but when nothing had happened in 6 days, she took another dose. She then had a small movement and was uncomfortable. She then had a larger movement. She came to the emergency room, where she said she had an enormous movement. It was not bloody. She was not running a fever. Her white count was up at 21,000, so she was admitted and placed on antibiotics. Since admission, she has had no further stool. There has been no vomiting. She has been afebrile. Her white count has fallen to 13.1. She has never had anything like this before. She had a colonoscopy 5 or 6 years ago where some polyps were found and she intended to have another as her father of colon cancer. She does have some chronic pain issues. PAST MEDICAL HISTORY: 1. Abdominal aortic aneurysm - followed since 2011. She is aware that probably extended beyond the bifurcation for 3 different stents were placed. 2. Chronic lung disease - she quit smoking in 2012. 3. Hypertension. 4. History of severe chronic constipation. 5. Sciatica with right flank and hip pain. HOME MEDICATIONS: 1. Hydrochlorothiazide 25. 2. Spironolactone 25. 3. Lisinopril 5. 4. Atenolol 25. 5. Aspirin 81. 6. Simvastatin 20. 7. Citalopram 40. 8. Tramadol 100. 9. Albuterol inhaler p.r.n. ALLERGIES: BUPROPION. SOCIAL HISTORY: She lives alone. She is a retired church secretary. She is . Her son is her proxy. She has decided to be DNR. REVIEW OF SYSTEMS: No history of hemoptysis or TB, seizures, CVA, MA, coronary interventions, hepatitis, jaundice. No history of psoriasis or chronic skin disease. PHYSICAL EXAM: She is a chronically ill appearing woman, kyphotic, in no overt distress although she complains of left lower quadrant, also her right thigh and hip area. HEENT exam shows no icterus. Mucous membranes are moist. She has no adenopathy. Her lungs are clear with diminished breath sounds. Heart sounds are regular. The abdomen is symmetric, mildly protuberant with normal bowel sounds. She says she passed gas this morning. She is quite tender in the left lower quadrant. There is no rigidity or involuntary guarding. Rectal shows normal external tissues, average sphincter tone and little bit of loose brown stools appearing fairly unremarkable. DIAGNOSTIC STUDIES/LAB DATA: CT review: A stent is obvious in the aorta with apparent stent material going into the proximal iliac. There is no obvious abscess. The colon wall is normally thin in the right hepatic transverse and to the splenic flexure. Below the splenic flexure, may be some thickening or possibly retained stool. There is no extraluminal gas. The rectal mucosa clearly appears normal. IMPRESSION: This 76-year-old woman with history of mesenteric vascular abnormalities presented with abdominal pain about 2 weeks after a stent was placed. This would have one thinking of colonic ischemia as the source with left lower quadrant tenderness although a typical history of diarrhea turning bloody is not there. She did have diarrhea but it was probably an exaggerated response to her laxative use. What seems more likely in either case is a mild case of diverticulitis with possible mini perforation or just translocation of bacteria created by combination of intense laxative use and constipation and it may not be possible ever to know the difference. For the moment, there does not seem to be any reason to change the current plan, which is bowel rest, IV antibiotics and no investigations at the moment. This does not seem typical of gastroenteritis or C. diff colitis. [id number]/[facility] #: [id number] [facility]
[2017-08-26] MEDS: traMADol TAB* 50 MG PO PRN ×2 (03:17→11:00)
[2017-08-26] MEDS: ZOSYN 3.375 GM Q8H per EXTENDED INFUSION IVPB SCH ×2 (05:49)
[2017-08-26] MEDS: Heparin VIAL(*) 5000 UNITS/ML VIAL (FIVE THOUSAND) SUBCUT SCH ×2 (05:53→14:51)
[2017-08-26 05:55] LABS: ABS Basophils 0 10^3/ul (0-0.2); ABS Eosinophils 0.2 10^3/ul (0-0.6); ABS Lymphocytes 0.5 10^3/ul (1.0-4.8); ABS Monocytes 0.8 10^3/ul (0-0.8); ABS Neutrophils 6.6 10^3/ul (1.5-7.7); ABS Nucleated RBC 0 10^3/ul; Eosinophil % 2.1 % (0-6); Hematocrit 26 % (35-47); Hemoglobin 8.9 g/dl (12.0-16.0); Lymphocyte % 6.6 % (25-47); Mean Corpuscular HGB Conc 34 g/dl (31-36); Mean Corpuscular Hemoglobin 31 pg (27-31); Mean Corpuscular Volume 89 fL (80-97); Mean Platelet Volume 8.1 um3 (7.4-10.4); Nucleated Red Blood Cells % 0; Platelet Count 201 10^3/ul (150-450); Red Blood Count 2.88 10^6/ul (4.0-5.4); Red Cell Distribution Width 15 % (10.5-15); White Blood Count 8.1 10^3/ul (3.5-10.8)
[2017-08-26 06:11] LABS: EGFR Non-African American 59.4 (>60)
[2017-08-26] MEDS: Mometasone/Formoter 200/5 MDI INH SCH ×2 (08:29→20:11)
[2017-08-26] MEDS: Oxybutynin TAB* 5 MG PO SCH ×3 (11:01→20:28)
[2017-08-26] MEDS: Citalopram TAB* 40 MG PO SCH (11:01)
[2017-08-26] MEDS: Aspirin EC TAB* 81 MG TAB.EC PO SCH (11:01)
[2017-08-26] MEDS: Docusate CAP* 100 MG PO PRN (11:01)
[2017-08-26] MEDS: Montelukast Sodium TAB* 10 MG PO SCH (11:01)
[2017-08-26] MEDS: Al Hydrox/Mg Hydrox/Simet LIQ* 30 ML UDC PO PRN (11:07)
--- NOTE | 2017-08-26 12:32 | PN ---
Subjective Date of Service: 08/26/17 Interval History: Ms. Sweet reports that she is feeling about the same. She has persistent left lower quadrant pain and pain in her right leg that runs from her back down the front of her leg. She also has intermittent numbness in her right leg as well. She is unable to tolerate MRI scans. Family History: Unchanged from Admission Social History: Unchanged from Admission Past Medical History: Unchanged from Admission Objective Active Medications: Acetaminophen (Tylenol Tab*) 650 mg PO Q4H PRN Al Hydrox/Mg Hydrox/Simethicone (Maalox Plus*) 30 ml PO Q6H PRN Albuterol (Ventolin Hfa Inhaler*) 1 puff INH DAILY PRN Aspirin (Aspirin Ec Tab*) 81 mg PO DAILY [facility] Atorvastatin Calcium (Lipitor*) 10 mg PO QPM [facility] Citalopram Hydrobromide (Celexa Tab*) 40 mg PO DAILY [facility] Docusate Sodium (Colace Cap*) 100 mg PO BID PRN Heparin Sodium (Porcine) (Heparin Vial(*)) 5,000 units SUBCUT Q8HR [facility] Lactated Ringer's (Lactated Ringers 1000 Ml Bag*) 1,000 mls @ 125 mls/hr IV PER RATE [facility] Piperacillin Sod/Tazobactam (Sod 3.375 gm/ Sodium Chloride) 100 mls @ 25 mls/ hr IVPB Q8H [facility] Mometasone Furoate/Formoterol Fumar (Dulera 200/5 Mdi*) 2 puff INH BID [facility] Montelukast Sodium (Singulair Tab*) 10 mg PO DAILY [facility] Morphine Sulfate (Morphine Vial*) 2 mg IV Q4H PRN Ondansetron HCl (Zofran 40 Mg Vial*) 4 mg IV Q4H PRN Oxybutynin Chloride (Ditropan Tab*) 5 mg PO TID [facility] Oxycodone/Acetaminophen (Percocet 5/325 Tab*) 1 tab PO Q4H PRN Pharmacy Consult (Zosyn Per Pharmacy*) 1 note FOLLOW UP .ZOSYN PER PHARMACY [facility] Senna (Senokot Tab*) 1 tab PO BID PRN Tramadol HCl (Ultram*) 100 mg PO Q6HR PRN Vital Signs: Temp Pulse Resp BP Pulse Ox 97.4 F 74 18 126/53 97 08/26/17 03:06 08/26/17 08:31 08/26/17 11:00 08/26/17 03:06 08/26/17 08:31 Oxygen Devices in Use Now: Nasal Cannula Appearance: Elderly female lying in bed in NAD Eyes: No Scleral Icterus Ears/Nose/Mouth/Throat: Mucous Membranes Moist Neck: Trachea Midline Respiratory: Symmetrical Chest Expansion and Respiratory Effort, Clear to Auscultation Cardiovascular: NL Sounds; No Murmurs; No JVD, No Edema Abdominal: - - Soft, tender in left lower quadrant, no rebound or guarding, no distention Lymphatic: No Cervical Adenopathy Extremities: No Edema Skin: No Rash or Ulcers Neurological: Alert and Oriented x 3 Nutrition: Taking PO's Result Diagrams: 08/26/17 05:30 08/26/17 05:30 Microbiology and Other Data: . Assess/Plan/Problems-Billing Assessment: Ms. Sweet is a 76 yo female with PMH of colitis, HTN, HLD, COPD, CKD, and s/ p AAA repair on 08/12/17 who presented to the emergency room with LLQ abd pain with CT scan showing colitis. - Patient Problems (1) Colitis Comment: - Continues to have LLQ abd pain. Leukocytosis resolving, BP improved. - Appreciate GI consult. Now more suspect infectious colitis possibly due to divertilitis. - BP improved, stop IVF. - Continue zosyn given nausea this AM. (2) Hyponatremia Comment: - Resolved. (3) ABE (acute kidney injury) Comment: - Resolved. - Continue to suspect prerenal cause due to illness in setting of diuretic use. (4) HTN (hypertension) Comment: - SBP 120s. - Hold spironolactone, lisinopril and HCTZ. (5) Anemia Comment: - Hgb down from 13 to 8.9 with IVF since admission - Stool occult blood negative x 1, but then positive. Iron deficient with % Iron sat < 5%, ferritin 99. Start iron supplementation when consistently tolerating oral intake. - Last colonoscopy was 5-6 years ago per patient, will finding only of polyp. - GI following. (6) Pain of right lower extremity Comment: - Patient a difficult historian but reports exacerbation of R leg pain with numbness since her abdominal aortic aneurysm stenting on 08/12/17. Denies bowel incontinence, has chronic bladder incontinence, no evidence of retention. - Suspect lumbar spine as origin of pain but patient refuses MRI due to claustrophobia, reports 3 unsuccessful attempts to perform MRI. - PT following. (7) COPD (chronic obstructive pulmonary disease) Comment: - No evidence of exacerbation. - Continue albuterol and dulera inhalers. (8) HLD (hyperlipidemia) Comment: - Continue atorvastatin. (9) DVT prophylaxis Comment: Heparin SQ (10) DNR (do not resuscitate) Comment: Status and Disposition: Inpatient. Anticipate discharge to home when medically stable.
[2017-08-26] MEDS ORDERED: Ciprofloxacin 400MG IVPREMIX(* 400 MG/200 ML BAG IVPB SCH (13:00)
[2017-08-26] MEDS ORDERED: metroNIDAZOLE IV 500 MG/100ML* 500 MG/100 ML BAG IVPB SCH (13:00)
[2017-08-26] MEDS ORDERED: metroNIDAZOLE TAB* 250 MG PO SCH (14:00)
[2017-08-26] MEDS: Piperacillin/Tazobac ADVAN(*) 3.375 GM in NS 0.9% 100 ML* 100 ML IVPB SCH ×2 (14:50→23:30)
[2017-08-26] MEDS: Morphine VIAL* 4 MG/ML VIAL (1 ml vial) IV PRN ×2 (14:50→20:28)
--- NOTE | 2017-08-26 16:46 | RAD ---
Indication: Shortness of breath. COPD. Colitis. Comparison: August 23, 2017 CT abdomen. Technique: Upright AP 1558 hours Report: In addition to moderate elevation of the RIGHT hemidiaphragm there is a small dependent RIGHT pleural effusion with proportional basilar atelectasis. Diffuse mild prominence of interstitial markings. Top normal heart size. Unremarkable central pulmonary vasculature and mediastinal contours accounting for rightward rotation. Negative for free air beneath the diaphragm. Unremarkable osseous structures. IMPRESSION: Increased RIGHT pleural effusion and proportional basilar atelectasis. Stigmata of COPD.
[2017-08-26] MEDS: Atorvastatin* 10 MG TAB PO SCH (17:16)
[2017-08-26] MEDS: oxyCODONE/Acetamin 5/325 MG* TAB PO PRN (17:23)
[2017-08-26] MEDS: Albuterol HFA INHALER* 8 gm MDI INH PRN (20:10)
[2017-08-26] MEDS ORDERED: Ciprofloxacin TAB* 500 MG PO SCH (21:00)
--- NOTE | 2017-08-27 00:59 | ED ---
Luis De Los Santos Julia, scribed for Harshad Guerin MD on 08/23/17 at 2215 . Complex/Multi-Sys Presentation - HPI Summary HPI Summary: This patient is a 76 year old F BIBA to [facility] with a chief complaint of R foot numbness radiating up her leg beginning around 19:00 this evening. On 08/12/17 she had a Triple -A surgery. She was discharged home on 08/14/17. She has had no complaints and has been mobile with a walker the past couple days. Yesterday after lunch she reports nausea and abdominal pain, without diarrhea. She believes she could be constipated so this morning she took a couple laxatives without relief, and then one more this evening. She then vomited three times with worsening abdominal pain describes as gas with gurgling sound. Shortly after pain radiated down her right leg with numbness of the right foot. She states the numbness has improved since onset. She denies any RUE numbness or weakness. - History Of Current Complaint Chief Complaint: EDHipPelvisInjury Time Seen by Provider: 08/23/17 22:04 Hx Obtained From: Patient Onset/Duration: Lasting Days Timing: Constant Location: Pain At: - abdomen Character: Unable To Describe - abdominal pain - "gas", RLE - numbness Associated Signs And Symptoms: Positive: Nausea, Vomiting, Abdominal Pain, Other - numbess. Negative: Diarrhea Related History: Recent Hospitalization - Allergies/Home Medications Allergies/Adverse Reactions: Allergies Allergy/AdvReac Type Severity Reaction Status Date / Time bupropion [From Wellbutrin] Allergy See Comment Verified 08/23/17 22:19 Home Medications: Home Medications Albuterol inh POWDER (NF) [Proair Respiclick] 108 mcg IN DAILY PRN 08/23/17 [ History Confirmed 08/23/17] Aspirin [Aspir-Low] 81 mg PO DAILY 08/23/17 [History Confirmed 08/23/17] Atenolol TAB* [Tenormin TAB* 25 MG] 25 mg PO DAILY 08/23/17 [History Confirmed 08/23/17] Citalopram TAB* [CeleXA TAB*] 40 mg PO DAILY 08/23/17 [History Confirmed ] Fluticasone/Vilanterol MDI(NF) [Breo Ellipta MDI (NF)] 1 puff INH DAILY [History Confirmed 08/23/17] Lisinopril 5 mg PO DAILY 08/23/17 [History Confirmed 08/23/17] Montelukast Sodium 10 mg PO DAILY 08/23/17 [History Confirmed 08/23/17] Oxybutynin TAB* [Ditropan TAB*] 5 mg PO TID 08/23/17 [History Confirmed 08/23/17 ] Simvastatin 20 mg PO QPM 08/23/17 [History Confirmed 08/23/17] Spironolactone 25 mg PO DAILY 08/23/17 [History Confirmed 08/23/17] Tizanidine HCl [Zanaflex] 4 mg PO Q6HR PRN 08/23/17 [History Confirmed 08/23/17] Tramadol HCl [Ultram] 100 mg PO Q6HR PRN 08/23/17 [History Confirmed 08/23/17] hydroCHLOROthiazide [Hydrochlorothiazide] 25 mg PO DAILY 08/23/17 [History Confirmed 08/23/17] PMH/Surg Hx/FS Hx/Imm Hx Cardiovascular History: Reports: Hx Hypercholesterolemia, Hx Hypertension Respiratory History: Reports: Hx Asthma, Hx Chronic Obstructive Pulmonary Disease (COPD) GI History: Reports: Other GI Disorders - diverticulitis, occasional constipation and diarrhea Musculoskeletal History: Reports: Hx Arthritis, Hx Back Problems, Hx Orthopedic Injury Sensory History: Reports: Hx Cataracts - removed bilaterally, Hx Contacts or Glasses Opthamlomology History: Reports: Hx Cataracts - removed bilaterally, Hx Contacts or Glasses Neurological History: Reports: Hx Migraine Psychiatric History: Reports: Hx Depression - Cancer History Cancer Type, Location and Year: melanoma removed from nose over30 yrs ago - Surgical History Surgery Procedure, Year, and Place: Right Rotator Cuff repair. Vocal cord polyps removed. Right wrist repair s/p fracture. aortic bypass - Immunization History Date of Tetanus Vaccine: utd Date of Influenza Vaccine: fall 2016 Infectious Disease History: No Infectious Disease History: Denies: Traveled Outside the [place] in Last 30 Days - Family History Known Family History: Positive: Hypertension - Social History Lives: With Family - sister - during recovery Alcohol Use: None Substance Use Type: Reports: None Smoking Status (MU): Former Smoker Review of Systems Positive: Abdominal Pain, Vomiting, Nausea. Negative: Diarrhea Positive: Numbness - R foot All Other Systems Reviewed And Are Negative: Yes Physical Exam - Summary Physical Exam Summary: Appearance: Well-appearing, Well-nourished, lying in bed comfortably Skin: Warm, dry, no obvious rash, Legs without pallor, Eyes: sclera anicteric, no conjunctiva pallor ENT: mucous membranes moist, pharynx appears normal Neck: Supple, nontender Respiratory: Clear to auscultation, no signs of respiratory distress Cardiovascular: Normal S1, S2. Systolic murmur 2/6. Normal distal pulses in tibial and radial bilaterally. Good femoral pulses bilaterally, Good pedal pulses mild tachycardia, good temperature to legs bilaterally Abdomen: Soft, diffuse abdominal tenderness with voluntary guarding, suprapubic ecchymosis, well healing wound Musculoskeletal: Normal, Strength/ROM Intact, good ROM of feet and toes Neurological: A&Ox3, awake and alert, mentation is normal, speech is fluent and appropriate Psychiatric: affect is normal, does not appear anxious or depressed Triage Information Reviewed: Yes Vital Signs On Initial Exam: Initial Vitals Temp Pulse Resp BP Pulse Ox 98.8 F 105 18 126/65 94 08/23/17 21:52 08/23/17 21:52 08/23/17 21:52 08/23/17 21:52 08/23/17 21:52 Vital Signs Reviewed: Yes Diagnostics - Vital Signs Vital Signs Temp Pulse Resp BP Pulse Ox 08/23/17 21:52 98.8 F 105 18 126/65 94 - Laboratory Lab Results: Lab Results 08/23/17 08/23/17 08/24/17 Range/Units 22:21 22:21 05:30 WBC 21.0 H (3.5-10.8) 10^3/ul RBC 4.43 (4.0-5.4) 10^6/ul Hgb 13.3 (12.0-16.0) g/dl Hct 40 (35-47) % MCV 91 (80-97) fL MCH 30 (27-31) pg MCHC 33 (31-36) g/dl RDW 15 (10.5-15) % Plt Count 332 (150-450) 10^3/ul MPV 7.6 (7.4-10.4) um3 Neut % (Auto) 90.0 H (38-83) % Lymph % (Auto) 2.9 L (25-47) % Alfalfa % (Auto) 6.5 (0-7) % Eos % (Auto) 0.2 (0-6) % Baso % (Auto) 0.4 (0-2) % Absolute Neuts (auto) 18.9 H (1.5-7.7) 10^3/ul Absolute Lymphs (auto) 0.6 L (1.0-4.8) 10^3/ul Absolute Monos (auto) 1.4 H (0-0.8) 10^3/ul Absolute Eos (auto) 0 (0-0.6) 10^3/ul Absolute Basos (auto) 0.1 (0-0.2) 10^3/ul Absolute Nucleated RBC 0 10^3/ul Nucleated RBC % 0 Sodium 134 L 133 L (139-145) mmol/L Potassium 4.8 4.6 (3.5-5.0) mmol/L Chloride 100 L 100 L (101-111) mmol/L Carbon Dioxide 23 23 (22-32) mmol/L Anion Gap 11 10 (2-11) mmol/L BUN 31 H 39 H (6-24) mg/dL Creatinine 1.44 H 1.50 H (0.51-0.95) mg/dL Est GFR ( Amer) 45.5 43.4 (>60) Est GFR (Non-Af Amer) 35.4 33.8 (>60) BUN/Creatinine Ratio 21.5 H 26.0 H (8-20) Glucose 211 H 173 H (70-100) mg/dL Lactic Acid (0.5-2.0) mmol/L Calcium 10.1 9.4 (8.6-10.3) mg/dL Iron (50-212) ug/dL TIBC (250-450) mcg/dL % Saturation (15-55) % Unsat Iron Binding ug/dL Transferrin (203-362) mg/dL Ferritin (11-307) ng/mL Total Bilirubin 0.80 (0.2-1.0) mg/dL AST 18 (13-39) U/L ALT 15 (7-52) U/L Alkaline Phosphatase 70 (34-104) U/L C-Reactive Protein 34.14 H (< 5.00) mg/L Total Protein 7.0 (6.4-8.9) g/dL Albumin 3.5 (3.2-5.2) g/dL Globulin 3.5 (2-4) g/dL Albumin/Globulin Ratio 1.0 (1-3) Lipase < 10 L (11.0-82.0) U/L Urine Color Urine Appearance Urine pH (5-9) Ur Specific Fowler (1.010-1.030) Urine Protein (Negative) Urine Ketones (Negative) Urine Blood (Negative) Urine Nitrate (Negative) Urine Bilirubin (Negative) Urine Urobilinogen (Negative) Ur Leukocyte Esterase (Negative) Urine WBC (Auto) (Absent) Urine RBC (Auto) (Absent) Ur Squamous Epith Cells (Absent) Urine Bacteria (Absent) Urine Glucose (Negative) 08/24/17 08/24/17 08/24/17 Range/Units 05:30 12:20 16:28 WBC 21.4 H (3.5-10.8) 10^3/ul RBC 4.03 (4.0-5.4) 10^6/ul Hgb 12.0 (12.0-16.0) g/dl Hct 36 (35-47) % MCV 91 (80-97) fL MCH 30 (27-31) pg MCHC 33 (31-36) g/dl RDW 15 (10.5-15) % Plt Count 281 (150-450) 10^3/ul MPV 7.6 (7.4-10.4) um3 Neut % (Auto) 93.0 H (38-83) % Lymph % (Auto) 1.2 L (25-47) % Alfalfa % (Auto) 5.7 (0-7) % Eos % (Auto) 0 (0-6) % Baso % (Auto) 0.1 (0-2) % Absolute Neuts (auto) 19.9 H (1.5-7.7) 10^3/ul Absolute Lymphs (auto) 0.3 L (1.0-4.8) 10^3/ul Absolute Monos (auto) 1.2 H (0-0.8) 10^3/ul Absolute Eos (auto) 0 (0-0.6) 10^3/ul Absolute Basos (auto) 0 (0-0.2) 10^3/ul Absolute Nucleated RBC 0 10^3/ul Nucleated RBC % 0 Sodium (139-145) mmol/L Potassium (3.5-5.0) mmol/L Chloride (101-111) mmol/L Carbon Dioxide (22-32) mmol/L Anion Gap (2-11) mmol/L BUN (6-24) mg/dL Creatinine (0.51-0.95) mg/dL Est GFR ( Amer) (>60) Est GFR (Non-Af Amer) (>60) BUN/Creatinine Ratio (8-20) Glucose (70-100) mg/dL Lactic Acid 1.2 (0.5-2.0) mmol/L Calcium (8.6-10.3) mg/dL Iron (50-212) ug/dL TIBC (250-450) mcg/dL % Saturation (15-55) % Unsat Iron Binding ug/dL Transferrin (203-362) mg/dL Ferritin (11-307) ng/mL Total Bilirubin (0.2-1.0) mg/dL AST (13-39) U/L ALT (7-52) U/L Alkaline Phosphatase (34-104) U/L C-Reactive Protein (< 5.00) mg/L Total Protein (6.4-8.9) g/dL Albumin (3.2-5.2) g/dL Globulin (2-4) g/dL Albumin/Globulin Ratio (1-3) Lipase (11.0-82.0) U/L Urine Color Millicent Urine Appearance Cloudy Urine pH 5.0 (5-9) Ur Specific Fowler 1.041 H (1.010-1.030) Urine Protein 1+(30 mg/dl) A (Negative) Urine Ketones Negative (Negative) Urine Blood Negative (Negative) Urine Nitrate Negative (Negative) Urine Bilirubin Negative (Negative) Urine Urobilinogen Positive A (Negative) Ur Leukocyte Esterase Negative (Negative) Urine WBC (Auto) Trace(0-5/hpf) (Absent) Urine RBC (Auto) 3+(>10/hpf) A (Absent) Ur Squamous Epith Cells Present A (Absent) Urine Bacteria Absent (Absent) Urine Glucose Negative (Negative) 08/24/17 08/25/17 08/25/17 Range/Units 16:28 05:25 05:25 WBC 17.1 H 13.1 H (3.5-10.8) 10^3/ul RBC 3.32 L 3.07 L (4.0-5.4) 10^6/ul Hgb 9.9 L 9.2 L (12.0-16.0) g/dl Hct 30 L 28 L (35-47) % MCV 90 90 (80-97) fL MCH 30 30 (27-31) pg MCHC 33 33 (31-36) g/dl RDW 15 15 (10.5-15) % Plt Count 235 221 (150-450) 10^3/ul MPV 7.9 7.8 (7.4-10.4) um3 Neut % (Auto) 86.2 H 87.0 H (38-83) % Lymph % (Auto) 4.2 L 4.5 L (25-47) % Alfalfa % (Auto) 9.4 H 7.2 H (0-7) % Eos % (Auto) 0.1 1.2 (0-6) % Baso % (Auto) 0.1 0.1 (0-2) % Absolute Neuts (auto) 14.7 H 11.4 H (1.5-7.7) 10^3/ul Absolute Lymphs (auto) 0.7 L 0.6 L (1.0-4.8) 10^3/ul Absolute Monos (auto) 1.6 H 0.9 H (0-0.8) 10^3/ul Absolute Eos (auto) 0 0.2 (0-0.6) 10^3/ul Absolute Basos (auto) 0 0 (0-0.2) 10^3/ul Absolute Nucleated RBC 0 0 10^3/ul Nucleated RBC % 0 0 Sodium 129 L (139-145) mmol/L Potassium 4.3 (3.5-5.0) mmol/L Chloride 100 L (101-111) mmol/L Carbon Dioxide 23 (22-32) mmol/L Anion Gap 6 (2-11) mmol/L BUN 42 H (6-24) mg/dL Creatinine 1.41 H (0.51-0.95) mg/dL Est GFR ( Amer) 46.6 (>60) Est GFR (Non-Af Amer) 36.3 (>60) BUN/Creatinine Ratio 29.8 H (8-20) Glucose 97 (70-100) mg/dL Lactic Acid (0.5-2.0) mmol/L Calcium 8.5 L (8.6-10.3) mg/dL Iron < 15 L (50-212) ug/dL TIBC 288 (250-450) mcg/dL % Saturation 5 L (15-55) % Unsat Iron Binding 273.70291 ug/dL Transferrin 206 (203-362) mg/dL Ferritin 99.6 (11-307) ng/mL Total Bilirubin (0.2-1.0) mg/dL AST (13-39) U/L ALT (7-52) U/L Alkaline Phosphatase (34-104) U/L C-Reactive Protein (< 5.00) mg/L Total Protein (6.4-8.9) g/dL Albumin (3.2-5.2) g/dL Globulin (2-4) g/dL Albumin/Globulin Ratio (1-3) Lipase (11.0-82.0) U/L Urine Color Urine Appearance Urine pH (5-9) Ur Specific Fowler (1.010-1.030) Urine Protein (Negative) Urine Ketones (Negative) Urine Blood (Negative) Urine Nitrate (Negative) Urine Bilirubin (Negative) Urine Urobilinogen (Negative) Ur Leukocyte Esterase (Negative) Urine WBC (Auto) (Absent) Urine RBC (Auto) (Absent) Ur Squamous Epith Cells (Absent) Urine Bacteria (Absent) Urine Glucose (Negative) Result Diagrams: 08/26/17 05:30 08/26/17 05:30 Lab Statement: Any lab studies that have been ordered have been reviewed, and results considered in the medical decision making process. - CT A/P CT Interpretation Completed By: Radiologist - 4.0cm ascending aortic aneurysm. Small pleural effusion with right lower lobe atelectasis or pneumonia. Firhgt renal atrophy rosio be secondary to renal arterial stenosis. Mild diffuse colitis may be due to infection or inflammatory bowel disease. Right sided colonic pneumatosis is considered very unlikely to represent bowel ischemia. Dr. Guerin has reviewed this report. Complex Multi-Symp Course/Dx - Diagnoses Provider Diagnoses: Abdominal pain - Physician Notifications Discussed Care Of Patient With: Rachel Walsh - hospitalist Time Discussed With Above Provider: 02:18 Instructed by Provider To: Admit As Inpatient Discharge - Sign-Out/Discharge Documenting (check all that apply): Discharge/Admit/Transfer - Discharge Plan Condition: Fair Disposition: ADMITTED TO [facility] - Billing Disposition and Condition Condition: FAIR Disposition: [facility] [place] The documentation as recorded by the Luis pappas Julia accurately reflects the service I personally performed and the decisions made by me, Harshad Guerin MD.
[2017-08-27] MEDS: Albuterol HFA INHALER* 8 gm MDI INH PRN ×2 (02:18→07:22)
[2017-08-27] MEDS: Piperacillin/Tazobac ADVAN(*) 3.375 GM in NS 0.9% 100 ML* 100 ML IVPB SCH ×3 (06:30→22:55)
[2017-08-27 06:42] LABS: ABS Basophils 0 10^3/ul (0-0.2); ABS Eosinophils 0.1 10^3/ul (0-0.6); ABS Lymphocytes 0.5 10^3/ul (1.0-4.8); ABS Monocytes 0.8 10^3/ul (0-0.8); ABS Neutrophils 4.2 10^3/ul (1.5-7.7); ABS Nucleated RBC 0 10^3/ul; Eosinophil % 2.4 % (0-6); Hematocrit 26 % (35-47); Hemoglobin 8.7 g/dl (12.0-16.0); Lymphocyte % 8.6 % (25-47); Mean Corpuscular HGB Conc 34 g/dl (31-36); Mean Corpuscular Hemoglobin 30 pg (27-31); Mean Corpuscular Volume 90 fL (80-97); Mean Platelet Volume 7.9 um3 (7.4-10.4); Nucleated Red Blood Cells % 0; Platelet Count 206 10^3/ul (150-450); Red Blood Count 2.88 10^6/ul (4.0-5.4); Red Cell Distribution Width 15 % (10.5-15); White Blood Count 5.6 10^3/ul (3.5-10.8)
[2017-08-27] MEDS: Mometasone/Formoter 200/5 MDI INH SCH ×2 (07:22→19:53)
[2017-08-27] MEDS: Oxybutynin TAB* 5 MG PO SCH ×3 (07:22→20:56)
[2017-08-27] MEDS: Montelukast Sodium TAB* 10 MG PO SCH (07:23)
[2017-08-27] MEDS: Citalopram TAB* 40 MG PO SCH (07:23)
[2017-08-27] MEDS: Aspirin EC TAB* 81 MG TAB.EC PO SCH (07:23)
[2017-08-27] MEDS ORDERED: Iron Sucrose* 20 MG/ML 5 ML VIAL IV PUSH SCH (09:27)
--- NOTE | 2017-08-27 09:29 | PN ---
Subjective Date of Service: 08/27/17 Interval History: Ms. Sweet reports that she feels somewhat better today. She has had no nausea and is tolerating oral intake well this morning. She continues to have some intermittent cramping left lower quadrant pain. She ambulated 40 feet with PT yesterday but was limited by SOB and pain in her right leg due to chronic low back and knee pain. Family History: Unchanged from Admission Social History: Unchanged from Admission Past Medical History: Unchanged from Admission Objective Active Medications: Acetaminophen (Tylenol Tab*) 650 mg PO Q4H PRN Al Hydrox/Mg Hydrox/Simethicone (Maalox Plus*) 30 ml PO Q6H PRN Albuterol (Ventolin Hfa Inhaler*) 2 puff INH Q4H PRN Aspirin (Aspirin Ec Tab*) 81 mg PO DAILY KIARA Atorvastatin Calcium (Lipitor*) 10 mg PO QPM KIARA Citalopram Hydrobromide (Celexa Tab*) 40 mg PO DAILY KIARA Docusate Sodium (Colace Cap*) 100 mg PO BID PRN Lactated Ringer's (Lactated Ringers 1000 Ml Bag*) 1,000 mls @ 125 mls/hr IV PER RATE KIARA Piperacillin Sod/Tazobactam (Sod 3.375 gm/ Sodium Chloride) 100 mls @ 25 mls/ hr IVPB Q8H KIARA Mometasone Furoate/Formoterol Fumar (Dulera 200/5 Mdi*) 2 puff INH BID KIARA Montelukast Sodium (Singulair Tab*) 10 mg PO DAILY KIARA Morphine Sulfate (Morphine Vial*) 2 mg IV Q4H PRN Oxybutynin Chloride (Ditropan Tab*) 5 mg PO TID KIARA Oxycodone/Acetaminophen (Percocet 5/325 Tab*) 1 tab PO Q4H PRN Senna (Senokot Tab*) 1 tab PO BID PRN Tramadol HCl (Ultram*) 100 mg PO Q6HR PRN Vital Signs: Temp Pulse Resp BP Pulse Ox 98.1 F 80 18 132/60 95 08/27/17 07:40 08/27/17 07:40 08/27/17 07:40 08/27/17 07:40 08/27/17 07:40 Oxygen Devices in Use Now: Nasal Cannula Appearance: Female sitting up in bed eating breakfast in NAD Eyes: No Scleral Icterus Ears/Nose/Mouth/Throat: Mucous Membranes Moist Neck: Trachea Midline Respiratory: Symmetrical Chest Expansion and Respiratory Effort, Clear to Auscultation Cardiovascular: NL Sounds; No Murmurs; No JVD, No Edema Abdominal: NL Sounds; No Tenderness; No Distention Lymphatic: No Cervical Adenopathy Extremities: No Edema Skin: No Rash or Ulcers Neurological: Alert and Oriented x 3, NL Muscle Strength and Tone Nutrition: Taking PO's Result Diagrams: 08/27/17 06:27 08/26/17 05:30 Additional Lab and Data: . Microbiology and Other Data: . Assess/Plan/Problems-Billing Assessment: Ms. Sweet is a 76 yo female with PMH of colitis, HTN, HLD, COPD, CKD, and s/ p AAA repair on 08/12/17 who presented to the emergency room with LLQ abd pain with CT scan showing colitis. - Patient Problems (1) Colitis Comment: - LLQ improved. BP improved. - Appreciate GI consult. Now more suspect infectious colitis possibly due to diverticulitis. - Advance diet to full liquid. - Continue zosyn. (2) Anemia Comment: - Hgb down from 13 to 8.7 with IVF since admission - Stool occult blood negative x 1, but then positive. Iron deficient with % Iron sat < 5%, ferritin 99. Start IV iron supplementation. - Last colonoscopy was 5-6 years ago per patient, with finding only of polyp. - GI following. (3) Hyponatremia Comment: - Resolved. (4) ABE (acute kidney injury) Comment: - Resolved. - Continue to suspect prerenal cause due to illness in setting of diuretic use. (5) HTN (hypertension) Comment: - SBP 120s. - Hold spironolactone, lisinopril and HCTZ. (6) Pain of right lower extremity Comment: - Patient a difficult historian but reports exacerbation of R leg pain with numbness since her abdominal aortic aneurysm stenting on 08/12/17. Denies bowel incontinence, has chronic bladder incontinence, no evidence of retention. - Suspect lumbar spine as origin of pain but patient refuses MRI due to claustrophobia, reports 3 unsuccessful attempts to perform MRI. Has chronic scoliosis, right knee OA and degenerative disc disease per patient. - PT following. (7) COPD (chronic obstructive pulmonary disease) Comment: - No evidence of exacerbation. - Continue albuterol and dulera inhalers. (8) HLD (hyperlipidemia) Comment: - Continue atorvastatin. (9) DVT prophylaxis Comment: -SCDs only in setting of anemia. (10) DNR (do not resuscitate) Comment: Status and Disposition: Inpatient. Anticipate discharge to home when medically stable.
[2017-08-27] MEDS: Iron Sucrose* 200 MG in NS 0.9% 100 ML* 100 ML IVPB SCH (10:27)
[2017-08-27] MEDS: traMADol TAB* 50 MG PO PRN ×2 (12:39→23:01)
[2017-08-27] MEDS: Atorvastatin* 10 MG TAB PO SCH (17:40)
[2017-08-27] MEDS: oxyCODONE/Acetamin 5/325 MG* TAB PO PRN (19:15)
[2017-08-28] MEDS: Piperacillin/Tazobac ADVAN(*) 3.375 GM in NS 0.9% 100 ML* 100 ML IVPB SCH (06:10)
[2017-08-28] MEDS: Mometasone/Formoter 200/5 MDI INH SCH ×2 (08:31→20:36)
[2017-08-28] MEDS: Citalopram TAB* 40 MG PO SCH (09:37)
[2017-08-28] MEDS: Oxybutynin TAB* 5 MG PO SCH ×3 (09:38→19:59)
[2017-08-28] MEDS: Senna TAB PO PRN (09:38)
[2017-08-28] MEDS: Montelukast Sodium TAB* 10 MG PO SCH (09:38)
[2017-08-28] MEDS: Aspirin EC TAB* 81 MG TAB.EC PO SCH (09:38)
[2017-08-28] MEDS: Docusate CAP* 100 MG PO PRN (09:38)
[2017-08-28] MEDS: traMADol TAB* 50 MG PO PRN ×2 (09:42→20:00)
[2017-08-28] MEDS: Iron Sucrose* 200 MG in NS 0.9% 100 ML* 100 ML IVPB SCH (10:25)
[2017-08-28] MEDS ORDERED: Bisacodyl SUPP* 10 MG SUPP PR PRN (13:31)
[2017-08-28] MEDS ORDERED: Polyethylene Glycol 3350* 17 GM PACKET PO PRN (13:31)
[2017-08-28] MEDS ORDERED: Lactulose* 15 ML UDC PO PRN (13:31)
--- NOTE | 2017-08-28 15:25 | RAD ---
INDICATION: Abdominal aortic aneurysm. Abdominal pain COMPARISON: Abdomen August 24, 2017 TECHNIQUE: A single view of the abdomen is submitted. FINDINGS: Bones: There are no acute bony findings. There is osteopenia with underlying degenerative change Soft tissues: The soft tissues appear normal. The psoas margins are sharp. Bowel gas pattern: There is persistent mild gaseous distention, unchanged Calcifications: There are no abnormal calcifications. Other: There is an endovascular stent graft. There is consolidative change in the right lung base with a right-sided effusion. IMPRESSION: STABLE APPEARANCE THE ABDOMEN. PERSISTENT GASEOUS DISTENTION AND RIGHT BASILAR ABNORMALITIES.
[2017-08-28] MEDS: Atorvastatin* 10 MG TAB PO SCH (17:23)
--- NOTE | 2017-08-28 18:11 | PN ---
Subjective Date of Service: 08/28/17 Interval History: Ms. Sweet is concerned that she has not had a bowel movement since she has been here. She reports that her abdominal pain has improved and that she mostly just feels gassy. She denies chest pain but has some dyspnea with exertion, unchanged from recent baseline. Family History: Unchanged from Admission Social History: Unchanged from Admission Past Medical History: Unchanged from Admission Objective Active Medications: Acetaminophen (Tylenol Tab*) 650 mg PO Q4H PRN Al Hydrox/Mg Hydrox/Simethicone (Maalox Plus*) 30 ml PO Q6H PRN Albuterol (Ventolin Hfa Inhaler*) 2 puff INH Q4H PRN Amoxicillin/Clavulanate Potassium (Augmentin Tab*) 875 mg PO BID KIARA Aspirin (Aspirin Ec Tab*) 81 mg PO DAILY KIARA Atorvastatin Calcium (Lipitor*) 10 mg PO QPM KIARA Bisacodyl (Dulcolax Supp*) 10 mg [place] DAILY PRN Citalopram Hydrobromide (Celexa Tab*) 40 mg PO DAILY KIARA Docusate Sodium (Colace Cap*) 100 mg PO BID PRN Lactated Ringer's (Lactated Ringers 1000 Ml Bag*) 1,000 mls @ 125 mls/hr IV PER RATE KIARA Iron Sucrose 200 mg/ Sodium (Chloride) 110 mls @ 110 mls/hr IVPB DAILY KIARA Lactulose (Lactulose*) 15 ml PO ONCE PRN Lactulose (Lactulose*) 15 ml PO TID PRN Mometasone Furoate/Formoterol Fumar (Dulera 200/5 Mdi*) 2 puff INH BID KIARA Montelukast Sodium (Singulair Tab*) 10 mg PO DAILY KIARA Morphine Sulfate (Morphine Vial*) 2 mg IV Q4H PRN Oxybutynin Chloride (Ditropan Tab*) 5 mg PO TID KIARA Oxycodone/Acetaminophen (Percocet 5/325 Tab*) 1 tab PO Q4H PRN Polyethylene Glycol/Electrolytes (Miralax*) 17 gm PO DAILY PRN Senna (Senokot Tab*) 1 tab PO BID PRN Tramadol HCl (Ultram*) 100 mg PO Q6HR PRN Vital Signs: Temp Pulse Resp BP Pulse Ox 98.1 F 77 21 154/71 99 08/28/17 16:03 08/28/17 16:03 08/28/17 16:03 08/28/17 16:03 08/28/17 16:03 Oxygen Devices in Use Now: None Appearance: Elderly female lying in bed in NAD Eyes: No Scleral Icterus Ears/Nose/Mouth/Throat: NL Teeth, Lips, Gums Neck: NL Appearance and Movements; NL JVP Respiratory: Symmetrical Chest Expansion and Respiratory Effort, Clear to Auscultation Cardiovascular: NL Sounds; No Murmurs; No JVD, No Edema Abdominal: NL Sounds; No Tenderness; No Distention Lymphatic: No Cervical Adenopathy Extremities: No Edema Skin: No Rash or Ulcers Neurological: Alert and Oriented x 3, NL Muscle Strength and Tone Nutrition: Taking PO's Result Diagrams: 08/27/17 06:27 08/26/17 05:30 Additional Lab and Data: . Microbiology and Other Data: . Assess/Plan/Problems-Billing Assessment: Ms. Sweet is a 76 yo female with PMH of colitis, HTN, HLD, COPD, CKD, and s/ p AAA repair on 08/12/17 who presented to the emergency room with LLQ abd pain with CT scan showing colitis. - Patient Problems (1) Colitis Comment: - LLQ improved. BP improved. - Appreciate GI consult. Now more suspect infectious colitis possibly due to diverticulitis. - Advance diet to full liquid. - Complete course of augmentin. (2) Constipation Comment: - Start multi-modal bowel regimen. (3) Anemia Comment: - Hgb down from 13 to 8.7 with IVF since admission - Stool occult blood negative x 1, but then positive. Iron deficient with % Iron sat < 5%, ferritin 99. Start IV iron supplementation. - Last colonoscopy was 5-6 years ago per patient, with finding only of polyp. - GI following. (4) Hyponatremia Comment: - Resolved. (5) ABE (acute kidney injury) Comment: - Resolved. - Continue to suspect prerenal cause due to illness in setting of diuretic use. (6) HTN (hypertension) Comment: - SBP 130-150s. - Resume spironolactone. Hold lisinopril and HCTZ. (7) Pain of right lower extremity Comment: - Patient a difficult historian but reports exacerbation of R leg pain with numbness since her abdominal aortic aneurysm stenting on 08/12/17. Denies bowel incontinence, has chronic bladder incontinence, no evidence of retention. - Suspect lumbar spine as origin of pain but patient refuses MRI due to claustrophobia, reports 3 unsuccessful attempts to perform MRI. Has chronic scoliosis, right knee OA and degenerative disc disease per patient. - PT following. (8) COPD (chronic obstructive pulmonary disease) Comment: - No evidence of exacerbation. - Continue albuterol and dulera inhalers. (9) HLD (hyperlipidemia) Comment: - Continue atorvastatin. (10) DVT prophylaxis Comment: -SCDs only in setting of anemia. (11) DNR (do not resuscitate) Comment: Status and Disposition: Inpatient. Anticipate discharge to home when medically stable.
[2017-08-28] MEDS: Amoxicillin/Clavulanate TAB* 875 MG PO SCH (19:59)
[2017-08-28] MEDS: Al Hydrox/Mg Hydrox/Simet LIQ* 30 ML UDC PO PRN (23:28)
[2017-08-29] MEDS: traMADol TAB* 50 MG PO PRN ×2 (04:56→20:09)
[2017-08-29 06:17] LABS: ABS Basophils 0 10^3/ul (0-0.2); ABS Eosinophils 0.3 10^3/ul (0-0.6); ABS Lymphocytes 0.7 10^3/ul (1.0-4.8); ABS Monocytes 1.1 10^3/ul (0-0.8); ABS Neutrophils 3.8 10^3/ul (1.5-7.7); ABS Nucleated RBC 0 10^3/ul; Eosinophil % 4.7 % (0-6); Hematocrit 27 % (35-47); Lymphocyte % 11.4 % (25-47); Mean Corpuscular HGB Conc 33 g/dl (31-36); Mean Corpuscular Hemoglobin 30 pg (27-31); Mean Corpuscular Volume 90 fL (80-97); Mean Platelet Volume 7.9 um3 (7.4-10.4); Nucleated Red Blood Cells % 0.1; Platelet Count 233 10^3/ul (150-450); Red Blood Count 2.99 10^6/ul (4.0-5.4); Red Cell Distribution Width 15 % (10.5-15); White Blood Count 5.9 10^3/ul (3.5-10.8)
[2017-08-29] MEDS: Mometasone/Formoter 200/5 MDI INH SCH ×2 (07:54→21:01)
--- NOTE | 2017-08-29 09:04 | PN ---
Subjective Date of Service: 08/29/17 Interval History: Ms. Sweet reports that she is feeling better today. However she did have nausea with vomiting x 1 last night and has not yet had a bowel movement. She denies SOB, chest pain. She is tolerating breakfast this AM. Family History: Unchanged from Admission Social History: Unchanged from Admission Past Medical History: Unchanged from Admission Objective Active Medications: Acetaminophen (Tylenol Tab*) 650 mg PO Q4H PRN Al Hydrox/Mg Hydrox/Simethicone (Maalox Plus*) 30 ml PO Q6H PRN Albuterol (Ventolin Hfa Inhaler*) 2 puff INH Q4H PRN Amoxicillin/Clavulanate Potassium (Augmentin Tab*) 875 mg PO BID KIARA Aspirin (Aspirin Ec Tab*) 81 mg PO DAILY KIARA Atorvastatin Calcium (Lipitor*) 10 mg PO QPM KIARA Bisacodyl (Dulcolax Supp*) 10 mg [place] DAILY PRN Citalopram Hydrobromide (Celexa Tab*) 40 mg PO DAILY KIARA Docusate Sodium (Colace Cap*) 100 mg PO BID PRN Lactated Ringer's (Lactated Ringers 1000 Ml Bag*) 1,000 mls @ 125 mls/hr IV PER RATE KIARA Iron Sucrose 200 mg/ Sodium (Chloride) 110 mls @ 110 mls/hr IVPB DAILY KIARA Lactulose (Lactulose*) 15 ml PO ONCE PRN Lactulose (Lactulose*) 15 ml PO TID PRN Mometasone Furoate/Formoterol Fumar (Dulera 200/5 Mdi*) 2 puff INH BID KIARA Montelukast Sodium (Singulair Tab*) 10 mg PO DAILY KIARA Morphine Sulfate (Morphine Vial*) 2 mg IV Q4H PRN Oxybutynin Chloride (Ditropan Tab*) 5 mg PO TID KIARA Oxycodone/Acetaminophen (Percocet 5/325 Tab*) 1 tab PO Q4H PRN Polyethylene Glycol/Electrolytes (Miralax*) 17 gm PO DAILY PRN Senna (Senokot Tab*) 1 tab PO BID PRN Spironolactone (Aldactone Tab*) 25 mg PO DAILY KIARA Tramadol HCl (Ultram*) 100 mg PO Q6HR PRN Vital Signs: Temp Pulse Resp BP Pulse Ox 98.3 F 93 17 152/66 90 05/26/18 08:05 08/29/17 08:05 08/29/17 08:05 08/29/17 08:05 08/29/17 08:05 Oxygen Devices in Use Now: None Appearance: Female sitting up in bed in NAD Eyes: No Scleral Icterus Ears/Nose/Mouth/Throat: Mucous Membranes Moist Neck: Trachea Midline Respiratory: Symmetrical Chest Expansion and Respiratory Effort, Clear to Auscultation Cardiovascular: NL Sounds; No Murmurs; No JVD, No Edema Abdominal: NL Sounds; No Tenderness; No Distention Lymphatic: No Cervical Adenopathy Extremities: No Edema Skin: No Rash or Ulcers Neurological: Alert and Oriented x 3, NL Muscle Strength and Tone Nutrition: Taking PO's Result Diagrams: 08/29/17 05:59 08/26/17 05:30 Additional Lab and Data: . Microbiology and Other Data: . Assess/Plan/Problems-Billing Assessment: Ms. Sweet is a 76 yo female with PMH of colitis, HTN, HLD, COPD, CKD, and s/ p AAA repair on 08/12/17 who presented to the emergency room with LLQ abd pain with CT scan showing colitis. - Patient Problems (1) Colitis Comment: - Resolved. - Appreciate GI consult. Now more suspect infectious colitis possibly due to diverticulitis. - Advance diet to regular. - Complete course of augmentin. (2) Constipation Comment: - Continue multi-modal bowel regimen. (3) Anemia Comment: - Hgb down from 13 to 8.7 with IVF since admission - Stool occult blood negative x 1, but then positive. Iron deficient with % Iron sat < 5%, ferritin 99. Start IV iron supplementation. - Last colonoscopy was 5-6 years ago per patient, with finding only of polyp. - GI following. (4) Hyponatremia Comment: - Resolved. (5) ABE (acute kidney injury) Comment: - Resolved. - Continue to suspect prerenal cause due to illness in setting of diuretic use. (6) HTN (hypertension) Comment: - SBP 130-150s. - Resume spironolactone and hctz. Hold lisinopril. (7) Pain of right lower extremity Comment: - Patient a difficult historian but reports exacerbation of R leg pain with numbness since her abdominal aortic aneurysm stenting on 08/12/17. Denies bowel incontinence, has chronic bladder incontinence, no evidence of retention. - Suspect lumbar spine as origin of pain but patient refuses MRI due to claustrophobia, reports 3 unsuccessful attempts to perform MRI. Has chronic scoliosis, right knee OA and degenerative disc disease per patient. - PT following. (8) COPD (chronic obstructive pulmonary disease) Comment: - No evidence of exacerbation. - Continue albuterol and dulera inhalers. (9) HLD (hyperlipidemia) Comment: - Continue atorvastatin. (10) DVT prophylaxis Comment: -SCDs only in setting of anemia. (11) DNR (do not resuscitate) Comment: Status and Disposition: Inpatient. Anticipate discharge to home when medically stable.
[2017-08-29] MEDS: Iron Sucrose* 200 MG in NS 0.9% 100 ML* 100 ML IVPB SCH (10:02)
[2017-08-29] MEDS: Amoxicillin/Clavulanate TAB* 875 MG PO SCH ×2 (10:03→20:09)
[2017-08-29] MEDS: Lactulose* 15 ML UDC PO PRN ×2 (10:03→15:14)
[2017-08-29] MEDS: Oxybutynin TAB* 5 MG PO SCH ×3 (10:03→20:09)
[2017-08-29] MEDS: Aspirin EC TAB* 81 MG TAB.EC PO SCH (10:03)
[2017-08-29] MEDS: Montelukast Sodium TAB* 10 MG PO SCH (10:03)
[2017-08-29] MEDS: Citalopram TAB* 40 MG PO SCH (10:03)
[2017-08-29] MEDS: Spironolactone TAB* 25 MG PO SCH (10:03)
[2017-08-29] MEDS ORDERED: Sodium Phosphate ADULT ENEMA* 118 ml bottle PR PRN (14:02)
[2017-08-29] MEDS: Docusate CAP* 100 MG PO PRN (15:14)
[2017-08-29] MEDS: Atorvastatin* 10 MG TAB PO SCH (17:31)
--- NOTE | 2017-08-30 07:55 | PN ---
Subjective Date of Service: 08/30/17 Interval History: Ms. Sweet reports that she is feeling well today. She had a large bowel movement yesterday and reports that made her feel much better. She denies abdominal pain, chest pain, SOB, or nausea today and is tolerating oral intake well. Family History: Unchanged from Admission Social History: Unchanged from Admission Past Medical History: Unchanged from Admission Objective Active Medications: Acetaminophen (Tylenol Tab*) 650 mg PO Q4H PRN Al Hydrox/Mg Hydrox/Simethicone (Maalox Plus*) 30 ml PO Q6H PRN Albuterol (Ventolin Hfa Inhaler*) 2 puff INH Q4H PRN Amoxicillin/Clavulanate Potassium (Augmentin Tab*) 875 mg PO BID KIARA Aspirin (Aspirin Ec Tab*) 81 mg PO DAILY KIARA Atorvastatin Calcium (Lipitor*) 10 mg PO QPM KIARA Bisacodyl (Dulcolax Supp*) 10 mg [place] DAILY PRN Citalopram Hydrobromide (Celexa Tab*) 40 mg PO DAILY [facility] Docusate Sodium (Colace Cap*) 100 mg PO BID PRN Hydrochlorothiazide (Hydrodiuril Tab*) 25 mg PO DAILY [facility] Iron Sucrose 200 mg/ Sodium (Chloride) 110 mls @ 110 mls/hr IVPB DAILY KIARA Lactulose (Lactulose*) 15 ml PO ONCE PRN Lactulose (Lactulose*) 15 ml PO TID PRN Mometasone Furoate/Formoterol Fumar (Dulera 200/5 Mdi*) 2 puff INH BID KIARA Montelukast Sodium (Singulair Tab*) 10 mg PO DAILY KIARA Morphine Sulfate (Morphine Vial*) 2 mg IV Q4H PRN Oxybutynin Chloride (Ditropan Tab*) 5 mg PO TID KIARA Oxycodone/Acetaminophen (Percocet 5/325 Tab*) 1 tab PO Q4H PRN Polyethylene Glycol/Electrolytes (Miralax*) 17 gm PO DAILY PRN Senna (Senokot Tab*) 1 tab PO BID PRN Sodium Biphosphate/Sodium Phosphate (Fleet Enema*) 1 bottle [place] DAILY PRN Spironolactone (Aldactone Tab*) 25 mg PO DAILY KIARA Tramadol HCl (Ultram*) 100 mg PO Q6HR PRN Vital Signs: Temp Pulse Resp BP Pulse Ox 98.2 F 85 18 135/77 92 08/30/17 03:36 08/30/17 03:36 08/30/17 03:36 08/30/17 03:36 08/30/17 03:36 Oxygen Devices in Use Now: Nasal Cannula Appearance: Female sitting up on edge of bed in NAD Eyes: No Scleral Icterus Ears/Nose/Mouth/Throat: Mucous Membranes Moist Neck: Trachea Midline Respiratory: Symmetrical Chest Expansion and Respiratory Effort, Clear to Auscultation Cardiovascular: NL Sounds; No Murmurs; No JVD, No Edema Abdominal: NL Sounds; No Tenderness; No Distention Lymphatic: No Cervical Adenopathy Extremities: No Edema Skin: No Rash or Ulcers Neurological: Alert and Oriented x 3, NL Muscle Strength and Tone Nutrition: Taking PO's Result Diagrams: 08/29/17 05:59 08/26/17 05:30 Additional Lab and Data: . Microbiology and Other Data: . Assess/Plan/Problems-Billing Assessment: Ms. Sweet is a 76 yo female with PMH of colitis, HTN, HLD, COPD, CKD, and s/ p AAA repair on 08/12/17 who presented to the emergency room with LLQ abd pain with CT scan showing colitis. - Patient Problems (1) Colitis Comment: - Resolved. - Complete course of augmentin. (2) Constipation Comment: - Resolved. (3) Anemia Comment: - Hgb down from 13 to 8.7 with IVF since admission - Stool occult blood negative x 1, but then positive. Iron deficient with % Iron sat < 5%, ferritin 99. Continue oral supplementation. - Last colonoscopy was 5-6 years ago per patient, with finding only of polyp. - GI following. (4) Hyponatremia Comment: - Resolved. (5) ABE (acute kidney injury) Comment: - Resolved. - Continue to suspect prerenal cause due to illness in setting of diuretic use. (6) HTN (hypertension) Comment: - SBP 130-150s. - Resume spironolactone and hctz. Resume lisinopril. (7) Pain of right lower extremity Comment: - Patient a difficult historian but reports exacerbation of R leg pain with numbness since her abdominal aortic aneurysm stenting on 08/12/17. Denies bowel incontinence, has chronic bladder incontinence, no evidence of retention. - Suspect lumbar spine as origin of pain but patient refuses MRI due to claustrophobia, reports 3 unsuccessful attempts to perform MRI. Has chronic scoliosis, right knee OA and degenerative disc disease per patient. - PT following. Patient able to ambulate 40 feet with walker. (8) COPD (chronic obstructive pulmonary disease) Comment: - No evidence of exacerbation. - Continue albuterol and dulera inhalers. (9) HLD (hyperlipidemia) Comment: - Continue atorvastatin. (10) DVT prophylaxis Comment: -SCDs only in setting of anemia. (11) DNR (do not resuscitate) Comment: Status and Disposition: Inpatient. Discharge.
[2017-08-30] MEDS ORDERED: Hydrochlorothiazide TAB* 25 MG PO SCH (09:00)
[2017-08-30] MEDS ORDERED: Lisinopril TAB* 10 MG PO SCH (09:00)
[2017-08-30] MEDS: Montelukast Sodium TAB* 10 MG PO SCH (09:45)
[2017-08-30] MEDS: Citalopram TAB* 40 MG PO SCH (09:45)
[2017-08-30] MEDS: Aspirin EC TAB* 81 MG TAB.EC PO SCH (09:45)
[2017-08-30] MEDS: Spironolactone TAB* 25 MG PO SCH (09:45)
[2017-08-30] MEDS: Oxybutynin TAB* 5 MG PO SCH (09:45)
[2017-08-30] MEDS: Amoxicillin/Clavulanate TAB* 875 MG PO SCH (09:45)
[2017-08-30] MEDS: Iron Sucrose* 200 MG in NS 0.9% 100 ML* 100 ML IVPB SCH (09:46)
[2017-08-30 10:07] VITALS: BP 150/64
[2017-08-30] MEDS: Mometasone/Formoter 200/5 MDI INH SCH (10:12)
--- NOTE | 2017-08-30 12:00 | DS ---
CC: Dr. Andino * [facility] MEDICINE DISCHARGE SUMMARY: DATE OF ADMISSION: 08/24/17 DATE OF DISCHARGE: 08/30/17 PRIMARY CARE PHYSICIAN: Dr. Andino. ATTENDING PHYSICIAN: Cy Samano MD * (dictation provided by Neema Morrison NP). PRIMARY DIAGNOSES: 1. Suspected infectious colitis. 2. Acute kidney injury, resolved secondary to dehydration. 3. Constipation, resolved. 4. Anemia. SECONDARY DIAGNOSES: 1. History of abdominal aortic aneurysm with stent placement on 08/12/17. 2. History of constipation. 3. History of colitis. 4. Hypertension. 5. Hyperlipidemia. 6. COPD. 7. Arthritis. 8. Sciatica. 9. Chronic kidney disease. MEDICATIONS AT THE TIME OF DISCHARGE: 1. Augmentin 1 tab p.o. b.i.d. x4 days, to complete a course of treatment for infectious colitis. 2. Hydrochlorothiazide 25 mg p.o. daily. 3. Tramadol 100 mg p.o. q.6 hours p.r.n. 4. Tizanidine 4 mg q.6 hours as needed. 5. Spironolactone 25 mg p.o. daily. 6. Simvastatin 20 mg at bedtime. 7. Oxybutynin 5 mg p.o. t.i.d. 8. Singulair 10 mg daily. 9. Lisinopril 5 mg p.o. daily. 10. Breo Ellipta one puff inhaled daily. 11. Celexa 40 mg p.o. daily. 12. Atenolol 25 mg p.o. daily. 13. Aspirin 81 mg p.o. daily. 14. Albuterol inhaled as needed. HOSPITAL COURSE: Ms. Sweet is a 76-year-old female with a past medical history of recent abdominal aortic aneurysm with stent placement at [facility] on 08/12/17 who presented to the hospital on 08/24/17 with concern for abdominal pain. Please see the dictated H and P from Rachel Walsh DO for complete details. In brief, the patient reported constipation and left lower quadrant pain. In the emergency room, she did have a large loose bowel movement, but no improvement in her pain. She also complained of low back and left hip pain radiating down to her leg that had started since her surgery at [facility] on 08/12/17 and was attributed to positioning during surgery. In the emergency room, Ms. Sweet had labs, which showed a white blood cell count of 21.0. She had an acute kidney injury with BUN of 31 and creatinine of 1.44. Her CRP was only 34.14. She had an abdomen and pelvis CT, which showed "diffuse mucosal thickening of the colon suggestive of colitis, the pneumatosis noted within the preliminary report is felt to represent intraluminal gas, atherosclerosis status post aortic stent graft and small right pleural effusion ". It was initially thought that perhaps Ms. Sweet had ischemic colitis secondary to her recent stent placement. We did have consultation with Dr. Rodrigues from gastroenterology services and I direct you to his note for complete details. After reviewing the entire case, he felt likely this was more infectious colitis perhaps secondary to diverticulitis and recommended continuation of antibiotics. Patient has been on Zosyn during this hospitalization and now that she is tolerating oral intake well has been transitioned over to Augmentin. During this hospitalization, Ms. Sweet has complained of low back pain and radiation of this into her left thigh with some numbness in her left foot. She states that this has been intermittent since her surgery on 08/12/17 at [facility]. She believes it is consistent with a history of sciatica, though her symptoms are not consistent with that. I had hoped to get a lumbar spine MRI for the patient given these symptoms, but she refused as she has had multiple attempts at MRIs in the past and was unable to tolerate them due to claustrophobia. At this time, the patient has no alarming symptoms such as bowel or bladder incontinence, and she is able to ambulate at least 40 feet with her walker. She has been seen by Physical therapy. Ms. Sweet has complained of significant constipation during this hospitalization. We started a multimodal bowel regimen including multiple doses of Lactulose and enema, and she was able to have a bowel movement yesterday. She states that her discomfort in the lower abdomen is completely resolved. Ms. Sweet had her hydrochlorothiazide, lisinopril, and spironolactone held during the hospitalization due to acute kidney injury, but her BUN and creatinine are now back to normal at 22 and 0.92 respectively. Her blood pressure medications have been slowly resumed. Her blood pressure today is 135/ 77. Ms. Sweet does have some noted iron deficiency anemia during this hospitalization. Her hemoglobin was 13.3 on arrival, but did fall to a juli of 8.7 on 08/27/17. She had 1 positive guaiac stool and 1 negative guaiac stool. She did not have any overt blood per rectum. I reviewed the records from her last CBC at Dr. Andino's office and note that her hemoglobin was about 10 around the time of discharge from [facility]. I think that the hemoglobin of 13.3 on arrival was a reflection of dehydration and that with hydration her subacute anemia was revealed. Because the patient was having trouble tolerating oral intake, I did initiate IV iron therapy while she was inpatient, and I would like to continue oral supplementation at discharge. Ms. Sweet has had a colonoscopy about 4 to 5 years ago and she states only 1 polyp was found. I think once she has recovered completely from this episode of infectious colitis, there could be a consideration for colonoscopy if her hemoglobin does not improve as expected with iron supplementation. Ms. Sweet is medically stable for discharge to home. DISPOSITION: To home. DIET: Low salt. ACTIVITY: As tolerated. FOLLOWUP PLAN: Please follow up with Dr. Andino regarding management of her chronic medical conditions. TIME SPENT: Approximately 60 minutes was spent on the discharge of this patient, more than half the time spent with her at the bedside reviewing the events leading up to this hospitalization, performing the physical examination, and reviewing the plan of care. NEEMA MORRISON, BARRERA [id number]/[facility] #: [id number] RADHA
== END 2017-08-30 14:45 | disposition home or self-care (01) | DRG 392 ==
LOC: ED 21:44 → OBSVTOIN 08-24 02:48 → INTOOBSV 08-24 02:48 → MED 08-24 02:48 → OBSVTOIN 08-25 11:07 → MED 08-26 10:50
PROVIDERS: ADMIT Pediatrics; ATTEND Internal Medicine
PROC: 02HV33Z Insertion of Infusion Device into Superior Vena Cava, Percutaneous Approach (ICD-10-PCS; principal; 2017-08-25)
DX: A09 Infectious gastroenteritis and colitis, unspecified (principal); N17.9 Acute kidney failure, unspecified; J90 Pleural effusion, not elsewhere classified; E87.1 Hypo-osmolality and hyponatremia; K57.32 Diverticulitis of large intestine without perforation or abscess without bleeding; E86.0 Dehydration; D64.9 Anemia, unspecified; K59.00 Constipation, unspecified; I71.4 Abdominal aortic aneurysm, without rupture; I12.9 Hypertensive chronic kidney disease with stage 1 through stage 4 chronic kidney disease, or unspecified chronic kidney disease; M79.604 Pain in right leg; Z66 Do not resuscitate; N39.498 Other specified urinary incontinence; N18.9 Chronic kidney disease, unspecified; D72.829 Elevated white blood cell count, unspecified; Z79.82 Long term (current) use of aspirin; Z79.899 Other long term (current) drug therapy; Z88.8 Allergy status to other drugs, medicaments and biological substances; Z80.3 Family history of malignant neoplasm of breast; Z80.0 Family history of malignant neoplasm of digestive organs; Z87.891 Personal history of nicotine dependence
CPT/HCPCS: 36415; 71045; 74018; 74019; 74177; 80048; 80053; 81003; 81015; 82270; 82272; 82570; 82728; 83540; 83550; 83605; 83690; 84300; 85025; 86140; 87086; 93005; 94640; 99284; A9270-GY; G0378; G8978-GP-CJ; G8979-GP-CH; J1644; J1756; J2270; J2543; Q9967

== ENCOUNTER 2019-03-03 00:34 | Inpatient (IN) | payer MEDICARE ==
[2019-03-03] MEDS ORDERED: Morphine INJ* 2 MG/ML 1 ML SYRINGE (TWO MG - NEW SYRINGE VERSION) IV ONE ×2 (00:48→01:52)
[2019-03-03] MEDS ORDERED: Albuterol/Ipratropium NEB.SOL* Albuterol 2.5 MG/Ipratropium 0.5 MG 3 ML INH ONE (00:48)
[2019-03-03] MEDS ORDERED: methylPREDNISolone 125 MG* 2 ML VIAL IV ONE (00:49)
--- NOTE | 2019-03-03 00:54 | ED ---
Adult Trauma - HPI Summary HPI Summary: 78 year old female who presents to the ED via EMS for left hip pain after a fall. Sometime after 10 PM the patient got up to get a drink of water and tripped over the dog. She landed on her left hip. Reports pain over the greater trochanter, that worsens when she moves her leg. Denies head trauma or LOC. Patient also states she is SOB and has been for the last few days. Has a history of COPD. Denies cough. Denies fever. Denies dysuria, frequency. states that only use oxygen at night and did not have it on yet. no chest pain. no head injury. no other pain. states was not this short of breath until fell. - History of Current Complaint Chief Complaint: EDFall Stated Complaint: L HIP PAIN PER EMS Time Seen by Provider: 03/03/19 00:46 Pain Intensity: 10 - Additional Pertinent History Primary Care Physician: [id number] - Allergy/Home Medications Allergies/Adverse Reactions: Allergies Allergy/AdvReac Type Severity Reaction Status Date / Time bupropion [From Wellbutrin] Allergy See Comment Verified 08/23/17 22:19 PMH/Surg Hx/FS Hx/Imm Hx Endocrine/Hematology History: Denies: Hx Diabetes Cardiovascular History: Reports: Hx Hypercholesterolemia, Hx Hypertension Respiratory History: Reports: Hx Asthma, Hx Chronic Obstructive Pulmonary Disease (COPD) GI History: Reports: Other GI Disorders - diverticulitis, occasional constipation and diarrhea History: Denies: Hx Renal Disease Musculoskeletal History: Reports: Hx Arthritis, Hx Back Problems, Hx Orthopedic Injury Sensory History: Reports: Hx Cataracts - removed bilaterally, Hx Contacts or Glasses Denies: Hx Hearing Aid Opthamlomology History: Reports: Hx Cataracts - removed bilaterally, Hx Contacts or Glasses Neurological History: Reports: Hx Migraine Psychiatric History: Reports: Hx Depression - Cancer History Cancer Type, Location and Year: melanoma removed from nose over30 yrs ago - Surgical History Surgery Procedure, Year, and Place: Right Rotator Cuff repair. Vocal cord polyps removed. Right wrist repair s/p fracture. aortic bypass - Immunization History Date of Tetanus Vaccine: utd Date of Influenza Vaccine: fall 2016 Infectious Disease History: No Infectious Disease History: Denies: Traveled Outside the [place] in Last 30 Days - Family History Known Family History: Positive: Hypertension - Social History Alcohol Use: None Substance Use Type: Reports: None Smoking Status (MU): Former Smoker Review of Systems Constitutional: Negative Eyes: Negative ENT: Negative Cardiovascular: Negative Respiratory: Negative Positive: Shortness Of Breath. Negative: Cough Gastrointestinal: Negative Genitourinary: Negative Negative: dysuria, frequency, hematuria Positive: Arthralgia - left hip pain Skin: Negative Negative: Bruising Neurological: Negative Psychological: Normal All Other Systems Reviewed And Are Negative: Yes Physical Exam Triage Information Reviewed: Yes Vital Signs On Initial Exam: Initial Vitals Temp Pulse Resp BP Pulse Ox 98.0 F 94 22 205/156 88 03/03/19 00:38 03/03/19 00:38 03/03/19 00:38 03/03/19 00:38 03/03/19 00:38 Vital Signs Reviewed: Yes Appearance: Positive: Well-Appearing, Well-Nourished, Pain Distress Skin: Positive: Warm, Skin Color Reflects Adequate Perfusion, Dry Head/Face: Positive: Normal Head/Face Inspection Eyes: Positive: Normal, EOMI, AUGIE ENT: Positive: Normal ENT inspection, Hearing grossly normal Neck: Positive: Supple, Nontender, No Lymphadenopathy Respiratory/Lung Sounds: Positive: Decreased Breath Sounds, Wheezes Cardiovascular: Positive: Normal, RRR, S1, S2 Abdomen Description: Positive: Nontender, No Organomegaly, Soft Bowel Sounds: Positive: Present Musculoskeletal: Positive: Other - Left hip without deformity on inspection. No eccymosis. Limited ROM d/t pain. Tenderness over trochanter. Dorsalis pedis pulses 2+. Neurological: Positive: Normal, Sensory/Motor Intact Psychiatric: Positive: Normal, Affect/Mood Appropriate AVPU Assessment: Alert Procedures - Sedation Patient Received Moderate/Deep Sedation with Procedure: No Diagnostics - Vital Signs Vital Signs Temp Pulse Resp BP Pulse Ox 03/03/19 00:38 98.0 F 94 22 205/156 88 - Laboratory Result Diagrams: 03/03/19 01:09 03/03/19 01:09 Lab Statement: Any lab studies that have been ordered have been reviewed, and results considered in the medical decision making process. - Radiology chest Radiology Interpretation Completed By: ED Physician Summary of Radiographic Findings: no significant change since previous xray hip Radiology Interpretation Completed By: ED Physician Summary of Radiographic Findings: hip fracture - EKG No standard instances Cardiac Rate: NL EKG Rhythm: Sinus Rhythm Summary of EKG Findings: sinus rhythm, artificat Re-Evaluation - Re-Evaluation First Eval Re-Evaluation Time: 01:58 Comment: oxygen at [address] bipap Second Eval Re-Evaluation Time: 02:10 Comment: oxygen at 90 on bipap. patient is feeling a bit better but is in a lot of pain Adult Trauma Course/Dx - Course Course Of Treatment: 78 year old female presents via EMS after fall on left hip tonight. No head trauma, no LOC. tenderness noted over greater trochanter. neurovascular intact. Patient is also experiencing SOB, has been going on for 3 days but got worst after falling. has history of COPD. O2 sats in the 80s on arrival. Wheezes throughout. gave breathing treatment with some improvement. is on 7 liters of oxygen currently oxy mask. patient destated to 82 after coming back from xray so will place on bipap. ekg sinus rhythm. wbc normal. troponin .02. gave solumedrol and magnesium for potential copd excerabation. bnp is 177 and chest xray possible chf so will give lasix. while on bipap patient started to feel better and oxygen is at 92. will get abg. xray shows surgical neck hip fracture. spoke with dr mcmahan who will see in morning. d-dimer is elevated so will get CTA. discussed case with dr vasquez who agrees to admit. - Diagnoses Differential Diagnosis/HQI/PQRI: Positive: Contusion(s), Fracture, Dislocation Provider Diagnoses: COPD (chronic obstructive pulmonary disease), Hip fracture, left, Hypoxia - Critical Care Time Critical Care Time: 30-74 min - 60 mins Discharge ED - Sign-Out/Discharge Documenting (check all that apply): Patient Departure - Discharge Plan Condition: Guarded Disposition: ADMITTED TO [facility] Referrals: Louise Andino MD [Primary Care Provider] - - Billing Disposition and Condition Condition: GUARDED Disposition: Admitted to [facility]
[2019-03-03] MEDS ORDERED: Ondansetron INJ* 2 MG/ML VIAL IV ONE (00:56)
[2019-03-03] MEDS ORDERED: Ondansetron INJ* 2 MG/ML VIAL ONE (00:57)
[2019-03-03] MEDS ORDERED: Magnesium Sulfate 2 GM IV* 2 GM/50 ML BAG IVPB ONE (01:08)
[2019-03-03 01:16] LABS: ABS Eosinophils 0.1 10^3/ul (0-0.6); ABS Lymphocytes 1.2 10^3/ul (1.0-4.8); ABS Monocytes 0.9 10^3/ul (0-0.8); ABS Neutrophils 9.3 10^3/ul (1.5-7.7); Hematocrit 46 % (35-47); Hemoglobin 15.5 g/dL (12.0-16.0); Lymphocyte % 10.5 %; Mean Corpuscular HGB Conc 33 g/dL (31-36); Mean Corpuscular Hemoglobin 31 pg (27-31); Mean Corpuscular Volume 93 fL (80-97); Platelet Count 184 10^3/uL (150-450); Red Blood Count 4.98 10^6 /uL (3.70-4.87); Red Cell Distribution Width 15 % (10-15); White Blood Count 11.6 10^3/uL (3.5-10.8)
[2019-03-03 01:25] LABS: Activated Partial Thrombo Time 35.9 seconds (26.0-38.0); INR 1.03 (0.82-1.09)
[2019-03-03 01:36] LABS: Albumin 3.9 g/dL (3.2-5.2); Albumin/Globulin Ratio 1.1 (1-3); BUN/Creatinine Ratio 26.7 (8-20); Calcium 10.1 mg/dL (8.6-10.3); EGFR African American 64.1 (>60); Globulin 3.6 g/dL (2-4); Magnesium 1.5 mg/dL (1.9-2.7); Potassium 4.4 mmol/L (3.5-5.0); Total Bilirubin 0.6 mg/dL (0.2-1.0); Total Protein 7.5 g/dL (6.4-8.9)
[2019-03-03 01:39] LABS: Troponin I 0.02 ng/mL (<0.03)
[2019-03-03] MEDS ORDERED: Furosemide IV* 10 MG/ML VIAL (40 MG) IV SLOW PU ONE (01:57)
[2019-03-03 02:36] LABS: Urine Appearance Turbid; Urine Bilirubin Negative (Negative); Urine Blood 1+ (Negative); Urine Color Yellow; Urine Glucose Negative (Negative); Urine Ketones Negative (Negative); Urine Nitrite Positive (Negative); Urine Protein Negative (Negative); Urine Specific Gravity 1.015 (1.010-1.030); Urine Urobilinogen Negative (Negative)
[2019-03-03] MEDS ORDERED: Iodixanol* (CONTRAST) 320 MG/ML 100 ML SDV IV ONE (02:38)
[2019-03-03 02:40] LABS: Urine Bacteria 3+ (Absent); Urine Red Blood Cell 3+(>10/hpf) (Absent); Urine White Blood Cell 3+(>20/hpf) (Absent)
[2019-03-03] MEDS ORDERED: Albuterol 2.5 MG/3 ML NEB.SOL* (0.083%) INH PRN (02:47)
[2019-03-03] MEDS ORDERED: Acetaminophen TAB* 325 MG PO PRN (02:47)
[2019-03-03] MEDS ORDERED: Morphine 4 MG/ML VIAL (1 ml) 4 MG/ML VIAL IV PRN (02:50)
--- NOTE | 2019-03-03 02:53 | ED ---
Progress - Progress Note Progress Note: Patient is a sign out from Dr. Regina Houser to Dr. Noe Nelson at change of shift at 0700 on 03/03/19, pending ABG, CTA, additional workup, and admission. Re-Evaluation - Re-Evaluation First Eval Re-Evaluation Time: 01:58 Comment: oxygen at [address] bipap Second Eval Re-Evaluation Time: 02:10 Comment: oxygen at 90 on bipap. patient is feeling a bit better but is in a lot of pain Course/Dx - Course Course Of Treatment: 78 year old female presents via EMS after fall on left hip tonight. No head trauma, no LOC. tenderness noted over greater trochanter. neurovascular intact. Patient is also experiencing SOB, has been going on for 3 days but got worst after falling. has history of COPD. O2 sats in the 80s on arrival. Wheezes throughout. gave breathing treatment with some improvement. is on 7 liters of oxygen currently oxy mask. patient destated to 82 after coming back from xray so will place on bipap. ekg sinus rhythm. wbc normal. troponin .02. gave solumedrol and magnesium for potential copd excerabation. bnp is 177 and chest xray possible chf so will give lasix. while on bipap patient started to feel better and oxygen is at 92. will get abg. xray shows surgical neck hip fracture. spoke with dr mcmahan who will see in morning. d-dimer is elevated so will get CTA. discussed case with dr vasquez who agrees to admit. - Diagnoses Provider Diagnoses: COPD (chronic obstructive pulmonary disease), Hip fracture, left, Hypoxia - Critical Care Time Critical Care Time: 30-74 min - 60 mins Discharge ED - Sign-Out/Discharge Documenting (check all that apply): Sign-Out Patient Receiving patient FROM: Regina Houser - Patient is a sign out from Dr. Regina Houser to Dr. Noe Nelson at change of shift at 0700 on 03/03/19 - Discharge Plan Condition: Guarded Disposition: ADMITTED TO [facility] Referrals: Louise Andino MD [Primary Care Provider] - - Attestation Statements Document Initiated by Scribe: Yes Documenting Scribe: Brannon Chadwick Provider For Whom Scribe is Documenting (Include Credential): Regina Houser MD Scribe Attestation: Brannon De Los Santos, scribed for Regina Houser MD on 03/03/19 at 0253.
[2019-03-03] MEDS ORDERED: Ipratropium 0.5MG/2.5ML NEB* 0.5 MG/2.5 ML NEB.SOLN INH SCH (03:00)
--- NOTE | 2019-03-03 03:07 | HP ---
History of Present Illness - History of Present Illness Reason for Visit: left hip pain History of Present Illness: Patient is 78 year old woman with history of COPD, PAD, who got up to get a drink of water tonight, tripped over her dog. She fell and injured her left hip , could not bear weight on LT leg w/o severe pain. She has not had severe dyspnea in last few days, but has had possible URI, mild SOB. Denied cough, chest pain in ER. At baseline, she has COPD and wears O2 nocturnally. In ER hypoxia noted with O2Sat in 83-89% ranged, BiPAP initiated. History limited by use of BiPAP. - Past Medical History Cardiac: HTN, Hyperlipidemia, Other - AAA Pulmonary: COPD - on nocturnal O2 Gastrointestinal: Constipation, Other - colitis Musculoskeletal: Other - sciatica Rheumatologic: Other - osteoarthritis Renal/: Chronic renal insuff - Past Surgical History Past Surgical History: Other - AAA repair w/ endograft 08/2017 - Past Family History Family History: Cancer - Father colon cancer age 50, mother of breast cancer - Past Social History Smoke: 1 pack per day, Quit - 6 yrs ago Occupation: retired corporate legal secretary Alcohol: None Drugs: None Lives: With Family, Other - son Fadi is HCP, in past DNR/DNI Review of Systems - Measurements Intake and Output: Intake and Output Last 24 Hours 02/28/19 03/01/19 03/02/19 03/03/19 06:59 06:59 06:59 06:59 Weight 77.111 kg - Review of Systems General Comments: unable to complete ROS due to BiPAP Objective Active Medications: Current Inpatient Medications: Acetaminophen (Tylenol Tab*) 650 mg PO Q4H PRN PRN Reason: FEVER/HEADACHE Albuterol (Ventolin 2.5 Mg/3 Ml Neb.Soumya*) 2.5 mg INH [id number] AWAKE PRN PRN Reason: SOB/WHEEZING Heparin Sodium (Porcine) (Heparin Vial(*)) 5,000 units SUBCUT Q8HR [facility] Azithromycin (Zithromax 500 Mg/250 Ml) 500 mg in 250 mls @ 250 mls/hr IVPB Q24H [facility] Ceftriaxone Sodium 1,000 mg/ (Sodium Chloride) 50 mls @ 200 mls/hr IVPB Q24H [facility] Ipratropium [place] (Atrovent 0.5 Mg Neb.Soumya*) 0.5 mg INH [id number] AWAKE [facility] Methylprednisolone Sodium Succinate (Solu-Medrol 125mg *) 60 mg IV Q8H [facility] Morphine Sulfate (Morphine Inj (Syringe)*) 3 mg IV Q3H PRN PRN Reason: PAIN - SEVERE Ambulatory Orders: Albuterol inh POWDER (NF) [Proair Respiclick] 108 mcg IN DAILY PRN 08/23/17 Aspirin [Aspir-Low] 81 mg PO DAILY 08/23/17 Atenolol TAB* [Tenormin TAB* 25 MG] 25 mg PO DAILY 08/23/17 Citalopram TAB* [Celexa TAB*] 40 mg PO DAILY 08/23/17 Fluticasone/Vilanterol MDI(NF) [Breo Ellipta MDI 100/25(NF)] 1 puff INH DAILY 08/23/17 Lisinopril 5 mg PO DAILY 08/23/17 Montelukast Sodium 10 mg PO DAILY 08/23/17 Oxybutynin TAB* [Ditropan TAB*] 5 mg PO TID 08/23/17 Simvastatin 20 mg PO QPM 08/23/17 Spironolactone 25 mg PO DAILY 08/23/17 Tizanidine HCl [Zanaflex] 4 mg PO Q6HR PRN 08/23/17 Tramadol HCl [Ultram] 100 mg PO Q6HR PRN 08/23/17 hydroCHLOROthiazide [Hydrochlorothiazide] 25 mg PO DAILY 08/23/17 Senna TAB 8.6 mg* [Senokot 8.6 mg TAB*] 1 tab PO BID PRN tab 08/30/17 Vital Signs - 8 hr 03/03/19 03/03/19 03/03/19 00:38 00:42 00:59 Temperature 36.7 C Pulse Rate 94 91 Respiratory 22 20 Rate Blood Pressure 205/156 205/156 (mmHg) O2 Sat by Pulse 88 87 Oximetry 03/03/19 03/03/19 03/03/19 01:00 01:01 01:55 Temperature Pulse Rate 94 93 116 Respiratory 23 25 19 Rate Blood Pressure 130/82 (mmHg) O2 Sat by Pulse 90 89 84 Oximetry 03/03/19 03/03/19 03/03/19 02:00 02:06 02:22 Temperature Pulse Rate 117 126 Respiratory 21 19 16 Rate Blood Pressure (mmHg) O2 Sat by Pulse 83 89 Oximetry Oxygen Devices in Use Now: BiPAP Appearance: elderly, moderate respiratory distress Ears/Nose/Mouth/Throat: NL Teeth, Lips, Gums, Clear Oropharnyx Respiratory: Symmetrical Chest Expansion and Respiratory Effort, - - rales and ronchi LT base Cardiovascular: NL Sounds; No Murmurs; No JVD, RRR, No Edema Abdominal: NL Sounds; No Tenderness; No Distention Lymphatic: No Cervical Adenopathy Extremities: No Edema, - - LT hip tender greater trochanter, hip flexed, mildly interally rotated, cannot straighten Skin: No Rash or Ulcers Neurological: - - answers yes/no questions Lines/Tubes/Other Access: Clean, Dry and Intact Peripheral IV Nutrition: Taking PO's Result Diagrams: 03/03/19 01:09 03/03/19 01:09 Additional Lab and Data: Laboratory Tests 03/03/19 03/03/19 03/03/19 01:09 01:09 01:09 INR (Anticoag Therapy) 1.03 APTT 35.9 D-Dimer, Quantitative > 1050 H ABG pH ABG pCO2 ABG pO2 Glucose 120 H Lactic Acid 0.7 Calcium 10.1 Magnesium 1.5 L B-Natriuretic Peptide Albumin 3.9 Urine Color Urine Appearance Ur Specific [place] Urine Blood Urine Nitrate Ur Leukocyte Esterase 03/03/19 03/03/19 03/03/19 01:09 02:25 02:36 INR (Anticoag Therapy) APTT D-Dimer, Quantitative ABG pH 7.18 L* ABG pCO2 82 H* ABG pO2 93 Glucose Lactic Acid Calcium Magnesium B-Natriuretic Peptide 177 H Albumin Urine Color Yellow Urine Appearance Turbid Ur Specific [place] 1.015 Urine Blood 1+ A Urine Nitrate Positive A Ur Leukocyte Esterase 3+ A Diagnostic Imaging: LT hip: subcapital fracture CXR: increased interstitial markings compared 08/2017 EKG Data: NSR, normal axis, T-wave inversions V3-V6 Assess/Plan/Problems-Billing Assessment: 78 year old woman with history of COPD, presenting with fall, LT hip fracture, and hypoxia - Patient Problems (1) Acute respiratory failure with hypoxia and hypercarbia Current Visit: Yes Status: Acute Priority: High Code(s): J96.01 - ACUTE RESPIRATORY FAILURE WITH HYPOXIA; J96.02 - ACUTE RESPIRATORY FAILURE WITH HYPERCAPNIA SNOMED Code(s): 073870801 Comment: -Review of blood gas shows chronic respiratory acidosis, w/ metabolic compensation, plus some acute worsening acidosis. Hypoxia has been corrected w/ institution of BiPAP. -Differential includes CHF, pneumonia, PE, COPD exacerbation. CTA chest completed, results pending. My read shows no PE, bibasilar effusion and interstitial fluid, more consistent with CHF than pneumonia. -Will monitor in ICU, continue BiPAP, attempt some diuresis. (2) COPD with exacerbation Current Visit: Yes Status: Acute Priority: Medium Code(s): J44.1 - CHRONIC OBSTRUCTIVE PULMONARY DISEASE W (ACUTE) EXACERBATION SNOMED Code(s): 305820906 Comment: -Will treat w/ IV steroids, nebulizers, and ceftriaxone/ azithromycin for possible pneumonia. -Continue BiPAP and supplemental O2. (3) Fracture of left hip Current Visit: Yes Status: Acute Priority: High Code(s): S72.002A - FRACTURE OF UNSP PART OF NECK OF LEFT FEMUR, INIT SNOMED Code(s): 826991099 Comment: -Appears to have subcapital fracture -Will consult with orthopedics, ER notified Dr. Narvaez, we will call in AM. -Maintain comfort with pain control, positioning (4) DNR (do not resuscitate) Current Visit: No Status: Acute Priority: Medium Comment: -Previous Code Status was DNR, MOLST in chart -Will discuss with son, HCP. -Will need to suspend DNR for surgery. -Called both numbers listed for son (HCP) but neither were working. (5) DVT prophylaxis Current Visit: No Status: Acute Priority: Low Code(s): LCP0199 - SNOMED Code(s): 772146807 Comment: -Very high risk -SCDs plus heparin ordered (6) Tachycardia Current Visit: Yes Status: Acute Priority: Medium Code(s): R00.0 - TACHYCARDIA, UNSPECIFIED SNOMED Code(s): 2546189 Comment: -Patient may have new onset CHF -Will trend troponins overnight -Echocardiogram ordered to assess LV function -Tachycardia may be due to pain, but also may be causing ischemia. -Repeat EKG planned. Status and Disposition: inpatient
[2019-03-03] MEDS ORDERED: cefTRIAXone VIAL(*) 1,000 MG in NS 0.9% 50 ML* 50 ML IVPB SCH (03:15)
[2019-03-03] MEDS ORDERED: Furosemide IV* 10 MG/ML 2 ML VIAL (20 MG) IV SLOW PU ONE (03:23)
[2019-03-03] MEDS ORDERED: Azithromycin 500 mg/250 ml NS 500 MG/250 ML BAG IVPB SCH (03:30)
[2019-03-03 04:36] LABS: Troponin I 0.03 ng/mL (<0.03)
[2019-03-03] MEDS: Heparin VIAL(*) 5000 UNITS/ML VIAL (FIVE THOUSAND) SUBCUT SCH ×3 (06:32→22:29)
[2019-03-03] MEDS ORDERED: Ipratropium 0.5MG/2.5ML NEB* 0.5 MG/2.5 ML NEB.SOLN INH PRN (06:49)
[2019-03-03 06:59] LABS: Troponin I 0.04 ng/mL (<0.03)
[2019-03-03] MEDS ORDERED: Perflutren Lipid Microsphere* 3 ML VIAL ONE (07:23)
[2019-03-03] MEDS ORDERED: Morphine INJ* 4 MG/ML 1 ML SYRINGE (NEW SYRINGE VERSION) ONE (09:15)
[2019-03-03] MEDS: methylPREDNISolone 125 MG* 2 ML VIAL IV SCH ×2 (09:31→17:05)
[2019-03-03 10:26] LABS: Troponin I 0.06 ng/mL (<0.03)
--- NOTE | 2019-03-03 10:26 | HP ---
H&P (Free Text) History and Physical: Orthopedic Surgery Consultation H&P Date: 03/03/2019 Requesting Service: ER/Hospitalist medicine Chief Complaint: Left hip pain. History: A 78-year-old woman status post mechanical fall onto her left side. She was brought into the emergency room with an inability to ambulate. She complained of left hip pain. Denies pain elsewhere. The H&P is somewhat limited due to her being on BiPAP and quickly desatting if that is removed. She does nod yes and no. She is currently in the ICU on BiPAP. She is started on antibiotics for a UTI and possible pneumonia. Review of Systems: Limited due to BiPAP PMH: COPD, peripheral arterial disease, hypertension, hyperlipidemia, abdominal aortic aneurysm, colitis, chronic kidney disease, sciatica PSH: AAA repair in 2018, rotator cuff repair, wrist fracture surgery, right knee surgery. Current Medications: Acetaminophen (Tylenol Tab*) 650 mg PO Q4H PRN PRN Reason: FEVER/HEADACHE Albuterol (Ventolin 2.5 Mg/3 Ml Neb.Soumya*) 2.5 mg INH [id number] AWAKE PRN PRN Reason: SOB/WHEEZING Heparin Sodium (Porcine) (Heparin Vial(*)) 5,000 units SUBCUT Q8HR [facility] Last Admin: 03/03/19 06:32 Dose: 5,000 units Azithromycin (Zithromax 500 Mg/250 Ml) 500 mg in 250 mls @ 250 mls/hr IVPB Q24H [facility] Last Admin: 03/03/19 03:55 Dose: 250 mls/hr Ceftriaxone Sodium 1,000 mg/ (Sodium Chloride) 50 mls @ 200 mls/hr IVPB Q24H [facility] Last Admin: 03/03/19 03:55 Dose: 200 mls/hr Ipratropium [place] (Atrovent 0.5 Mg Neb.Soumya*) 0.5 mg INH [id number] AWAKE PRN PRN Reason: new order Methylprednisolone Sodium Succinate (Solu-Medrol 125mg *) 60 mg IV Q8H [facility] Last Admin: 03/03/19 09:31 Dose: 60 mg Morphine Sulfate (Morphine 4 Mg/Ml Vial (1 Ml)) 3 mg IV Q3H PRN PRN Reason: PAIN - SEVERE Allergies: Wellbutrin SH: Lives in a house with her sisters. Quit smoking 6 years ago. Retired. No alcohol or drug use. FH: Cancer and hypertension Physical Examination: Constitutional: Temp Pulse Resp BP Pulse Ox 99.1 F 97 20 104/73 94 03/03/19 10:00 03/03/19 10:00 03/03/19 10:00 03/03/19 10:00 03/03/19 10:00 General appearance is poor with labored breathing using the BiPAP Cardiovascular: Pulse examination demonstrates positive pedal pulses. Capillary refill less than 3 seconds. There are varicosities. Abdomen: Soft and nontender Lymphatic: No lymphadenopathy appreciated. Psychiatric / Neurological: Normoreflexive deep tendon reflex of the affected extremity. Musculoskeletal: She is able to move both of her upper extremities in fairly normal fashion, considering the IV lines. She is able to move her right lower extremity as well. No obvious discomfort with movement of these 3 extremities. No gross deformity or tenderness. Left lower extremity: The leg is shortened Skin intact She is able to wiggle her toes. There is no global swelling, edema. Pain with logroll and heel strike No TTP at knee, lower leg, ankle, foot Palpable DP pulse. Imaging: X-rays were obtained, and independently interpreted and a displaced left femoral neck fracture Labs: WBC 11.6 HCT 46 Platelets 184 Cr 1.01 INR 1.03 UA positive Trop 0.02 -> 0.03 -> 0.04 Impression and Plan: 78-year-old female status post mechanical fall with displaced left femoral neck fracture. She is currently in the ICU with acute respiratory failure, COPD exacerbation, UTI, possible pneumonia. I did discuss both nonoperative and operative treatment options with her, including risks of both. She is currently not stable enough for surgery. We will further discuss treatment options with her as she becomes more stable. For now, nonweightbearing in the affected extremity. I recommend chemical and mechanical DVT prophylaxis. Pain control. Erik Lombardi MD
--- NOTE | 2019-03-03 11:04 | ECHO ---
*[facility]* [place] [address] Fax #: [phone] Transthoracic Echocardiogram Patient: Regina Sweet : 1940 Study Date: 03/03/2019 Age: 78 Gender: F HR: 100 bpm Height: 60 in /152.4 cm BSA: 1.74 m^2 Weight: 169.6 lb /77.1 kg BMI: 33.2 kg/m^2 *Private Pilot: Karly Hodgson [facility] *Referring Physician: * Cy Samano *Reading Physician: * Douglas Samuel MD Indications: Congestive Heart Failure. History: PAD. Chronic obstructive pulmonary disease. The patient uses supplemental oxygen at night. Conclusions Summary: - Left ventricle: The cavity size is moderately reduced. Wall thickness is moderately increased. Systolic function is hyperdynamic. The estimated ejection fraction is 65-70%. Wall motion is normal; there are no regional wall motion abnormalities. - Functionally benign heart valves. - There is no prior echocardiogram available to compare with at this time. Study data: Transthoracic echocardiogram. Procedure: Transthoracic echocardiography was performed. Image quality was poor. The study was technically limited due to restricted patient mobility, Patient on Bipap, and COPD. Intravenous Definity , 3 mls was administered. Image enhancement administered by Esther Obando RN. Complete 2D, spectral Doppler, and color flow Doppler. Location: ICU Patient status: Inpatient. Patient room number: 3. Rhythm: Normal sinus rhythm. Findings Left ventricle: The cavity size is moderately reduced. Wall thickness is moderately increased. Systolic function is hyperdynamic. The estimated ejection fraction is 65-70%. Wall motion is normal; there are no regional wall motion abnormalities. Left ventricular diastolic function parameters are indeterminate. Right ventricle: The cavity size is normal. Systolic function is normal. Left atrium: The atrium is normal in size. Right atrium: The atrium is normal in size. Mitral valve: The Mitral valve annulus appears mildly calcified. The leaflets are normal thickness. There is no significant regurgitation. Aortic valve: The leaflets are moderately thickened. There is no evidence of stenosis. There is no significant regurgitation. Tricuspid valve: The leaflets are normal thickness. There is trace regurgitation. Pulmonic valve: Not well visualized. There is no significant regurgitation. Aorta: The aortic root appears normal. Pericardium: There is no significant pericardial effusion. Pulmonary arteries: Not well visualized. Systolic pressure is at the upper limits of normal. Systemic veins: Inferior vena cava: Not well visualized. Measurements Left ventricle Value Ref Right atrium Value Ref ORIANA, LAX (L) 2.9 cm 3.8 - SI dim, ES 4.3 cm 3.4 - 5.3 5.2 ML dim, ES, A4C 3.6 cm 2.6 - 4.4 ESD, LAX (L) 1.8 cm 2.2 - Estimated RAP 8 mm Hg --------- 3.5 FS, LAX 35 % 27 - 45 Aortic valve Value Ref PW, ED, LAX (H) 1.3 cm 0.6 - Gretchen diam, ED 2.0 cm --------- 0.9 Peak v, S 1.8 m/sec --------- EF 67 % 54 - 74 VTI, S 30.0 cm --------- E', lat gretchen, TDI (L) 5.8 cm/sec >=10.0 Mean grad, S 7.0 mm Hg ---- ----- E/e', lat gretchen, TDI 11 -------- Peak grad, S 13.0 mm Hg ------- -- E', med gretchen, TDI (L) 3.8 cm/sec >=7.0 LVOT/AV, VTI ratio 0.73 ---- ----- E/e', med gretchen, TDI 16 -------- RSOAURA, VTI 2.30 cm^2 ------- -- E', avg, TDI 4.8 cm/sec -------- ROSAURA, Vmax 2.10 cm^2 ------- -- E/e', avg, TDI 13 <=14 Mitral valve Value Ref LVOT Value Ref Peak E 0.62 m/sec --------- Diam, S 2.00 cm -------- Peak A 0.97 m/sec --------- Area 3.1 cm^2 -------- Decel time 66 ms --------- Peak ivy, S 1.2 m/sec -------- Peak E/A ratio 0.6 --------- VTI, S 22.0 cm -------- Peak grad, S 6 mm Hg -------- Tricuspid valve Value Ref Mean grad, S 3 mm Hg -------- TR peak v 2.6 m/sec <=2.8 Peak RV-RA grad, S 27 mm Hg --------- Ventricular septum Value Ref IVS, ED (H) 1.4 cm 0.6 - Aortic root Value Ref 0.9 Root diam 2.9 cm <3.9 Right ventricle Value Ref Pulmonary artery Value Ref ORIANA minor ax, A4C 3.3 cm 1.9 - Pressure, S 35.0 mm Hg --------- mid 3.5 Pressure, S 35 mm Hg -------- Left atrium Value Ref ML dim, A4C 3.7 cm -------- SI dim, A4C 5.7 cm -------- Vol/bsa, ES, A/L 31 ml/m^2 16 - 34 Legend: (L) and (H) vivian values outside specified reference range. Prepared and electronically signed by Douglas Samuel MD 03/03/2019 11:03
[2019-03-03] MEDS: Morphine INJ* 4 MG/ML 1 ML SYRINGE (NEW SYRINGE VERSION) IV PRN ×3 (12:34→20:52)
--- NOTE | 2019-03-03 13:43 | CONS ---
CC: Dr. Erik Lombardi * CARDIOLOGY CONSULTATION: DATE OF CONSULT: 03/03/19 REFERRING PHYSICIAN: Meena Hernandez NP. REASON FOR CONSULT: Preop cardiac evaluation in a patient with mildly elevated troponins and abnormal EKG. HISTORY OF PRESENT ILLNESS: Ms. Sweet is currently on BiPAP and is unable to provide meaningful history. She does firmly deny chest pain. Apparently, the patient yesterday was in her usual state of health and tripped and fell over her dog at her home and has suffered a left hip fracture and will require left hip replacement. PAST MEDICAL HISTORY: Includes hypertension, hyperlipidemia. She has apparently had abdominal aortic aneurysm repair with endograft in August 2017. She also has a history of COPD and is on nocturnal oxygen. Constipation, colitis, sciatica, osteoarthritis, chronic renal insufficiency. OUTPATIENT MEDICATIONS: Include: 1. Fluticasone. 2. Albuterol. 3. Aldactone 25 mg once a day. 4. Tizanidine. 5. Lisinopril 5 mg once a day. 6. Citalopram 40 mg once a day. 7. Atenolol 25 mg once a day. 8. Hydrochlorothiazide 25 mg once a day. 9. Zocor 20 mg once a day. 10. Aspirin 81 mg once a day. ALLERGIES TO MEDICATIONS: Listed as BUPROPION. FAMILY HISTORY: Unable to obtain as the patient is currently requiring positive pressure ventilation with her BiPAP machine. SOCIAL HISTORY: Unable to obtain as the patient is currently requiring positive pressure ventilation with her BiPAP machine. REVIEW OF SYSTEMS: Unable to obtain as the patient is currently requiring positive pressure ventilation with her BiPAP machine. Again, she does clearly deny chest pain. PHYSICAL EXAM: Height 5 feet, weight 161 pounds, temperature 99 degrees, pulse 90, blood pressure 117/75, O2 saturation on BiPAP is 95%. Apparently, she desaturates when the BiPAP is stopped. On general exam, she is a chronically ill-appearing lady, in at least mild respiratory distress. HEENT shows cranium is normocephalic and atraumatic. She has dry mucosal membranes. Neck veins are unable to be assessed due to her use of positive pressure ventilation. There are no carotid bruits. Visible skin warm and perfused. She is awake. Formal mini mental status exam unable to be performed. Mild kyphoscoliosis on semirecumbent back exam. Lungs reveal increased expiratory phase. No wheezes. No rhonchi. Cardiac Exam: S1, S2. Regular rate. No significant murmurs, rubs , or gallops. PMI is nondisplaced. Abdomen: Soft, nondistended, appears benign. Extremities with no more than trivial peripheral edema. Pulses appear grossly intact. DIAGNOSTIC STUDIES/LAB DATA: The patient completed 12-lead EKG on 03/03/19 at 0048, which demonstrates sinus rhythm with poor R-wave progression and lateral T - wave changes; however, the baseline is quite poor. When compared to prior EKG completed on 08/27/17, doubt significant change. The patient completed transthoracic echocardiogram earlier today (please see also that report), which demonstrates hyperdynamic left ventricular ejection fraction of 65% to 70% with moderate left ventricular hypertrophy, moderately decreased left ventricular size, functionally benign heart valves. White blood cell count 11.6, hematocrit 46, platelet count 184. INR 1.03. Sodium 137, potassium 4.4, chloride 100, bicarbonate 31, BUN 27, creatinine 1.01 , magnesium 1.5. Troponin 0.03 followed by 0.04, followed by 0.06. BNP 177. IMPRESSION: Ms. Sweet is a 78-year-old woman without known cardiac disease, admitted with left hip fracture, and she will require left hip replacement. There do not appear to be any active cardiac issues and her mild troponinemia is likely due to demand mediation and/or right heart strain. It is reassuring that she has preserved and in fact hyperdynamic left ventricular ejection fraction with stable EKG (Tw changes due to LVH and seen prior) and no angina. The patient does appear to be at increased risk for surgery predominantly due to her current impaired respiratory status with COPD exacerbation requiring BiPAP support. RECOMMENDATIONS: 1. Would recommend continuing her beta-jose de jesus sanket and postoperatively to help prevent rebound tachycardia. 2. If her blood pressure were to decrease, would recommend hydration given her decreased LV size suggesting intravascular volume depletion. 3. Recommend keeping magnesium 2 to 2.8. 4. Pulmonary optimization as per the hospitalist service. 5. Left hip fracture care as per the orthopedic service. Dear Ms. Hernandez, many thanks for this kind cardiac consultation opportunity. Please do not hesitate to contact me if you have any questions or concerns regarding the patient's cardiovascular consultative care. The above was discussed with the patient and she appears to be in agreement with these recommendations. I have also discussed the case with Ms. Hernandez. [id number]/[facility] #: [id number] RADHA
[2019-03-03] MEDS ORDERED: NS 0.9% 500 ML* 500 ML IV ONE (15:36)
[2019-03-03] MEDS ORDERED: NS 0.9% 1000 ML** 1,000 ML IV SCH (15:45)
--- NOTE | 2019-03-03 16:22 | PN ---
Subjective Date of Service: 03/03/19 Interval History: Patient seen, ROS limited 2/2 bipap. Chart and labs reviewed in detail. Patient unable to come off bipap for any length of time due to desaturation. She does appear to be in some distress and pain. Incidentally, patient's brother is in ICU1. Objective Active Medications: Acetaminophen (Tylenol Tab*) 650 mg PO Q4H PRN PRN Reason: FEVER/HEADACHE Albuterol (Ventolin 2.5 Mg/3 Ml Neb.Soumya*) 2.5 mg INH [id number] AWAKE PRN PRN Reason: SOB/WHEEZING Heparin Sodium (Porcine) (Heparin Vial(*)) 5,000 units SUBCUT Q8HR KIARA Last Admin: 03/03/19 14:30 Dose: 5,000 units Azithromycin (Zithromax 500 Mg/250 Ml) 500 mg in 250 mls @ 250 mls/hr IVPB Q24H KIARA Last Admin: 03/03/19 03:55 Dose: 250 mls/hr Ceftriaxone Sodium 1,000 mg/ (Sodium Chloride) 50 mls @ 200 mls/hr IVPB Q24H KIARA Last Admin: 03/03/19 03:55 Dose: 200 mls/hr Sodium Chloride (Ns 0.9% 500 Ml*) 500 mls @ 500 mls/hr IV ONCE ONE Stop: 03/03/19 16:35 Last Admin: 03/03/19 15:40 Dose: 500 mls/hr Sodium Chloride (Ns 0.9% 1000 Ml) 1,000 mls @ 75 mls/hr IV PER [facility] Ipratropium [place] (Atrovent 0.5 Mg Neb.Soumya*) 0.5 mg INH [id number] AWAKE PRN PRN Reason: new order Methylprednisolone Sodium Succinate (Solu-Medrol 125mg *) 60 mg IV Q8H [facility] Last Admin: 03/03/19 09:31 Dose: 60 mg Morphine Sulfate (Morphine Inj (Syringe)*) 3 mg IV Q3H PRN PRN Reason: PAIN - SEVERE Last Admin: 03/03/19 12:34 Dose: 3 mg Vital Signs - 8 hr 03/03/19 03/03/19 03/03/19 08:31 09:00 09:30 Temperature 99.0 F 99.1 F 99.1 F Pulse Rate 95 92 91 Respiratory 23 23 24 Rate Blood Pressure 114/76 108/67 106/70 (mmHg) O2 Sat by Pulse 95 94 94 Oximetry 03/03/19 03/03/19 03/03/19 10:00 10:31 11:00 Temperature 99.1 F 99.1 F 99.1 F Pulse Rate 97 98 91 Respiratory 20 22 18 Rate Blood Pressure 104/73 113/96 (mmHg) O2 Sat by Pulse 94 94 94 Oximetry 03/03/19 03/03/19 03/03/19 11:01 11:31 12:00 Temperature 99.0 F 99.0 F 99.0 F Pulse Rate 93 91 91 Respiratory 20 24 17 Rate Blood Pressure 106/65 105/81 (mmHg) O2 Sat by Pulse 95 94 96 Oximetry 03/03/19 03/03/19 03/03/19 12:01 12:30 12:34 Temperature 99.0 F 99.0 F Pulse Rate 90 90 Respiratory 14 14 22 Rate Blood Pressure 117/75 106/71 (mmHg) O2 Sat by Pulse 95 96 Oximetry 03/03/19 03/03/19 03/03/19 13:00 13:01 13:30 Temperature 99.0 F 99.0 F 98.8 F Pulse Rate 86 87 90 Respiratory 16 19 17 Rate Blood Pressure 97/65 94/74 (mmHg) O2 Sat by Pulse 95 95 95 Oximetry 03/03/19 03/03/19 03/03/19 14:00 14:01 14:31 Temperature 98.8 F 98.8 F 98.6 F Pulse Rate 91 94 85 Respiratory 18 18 21 Rate Blood Pressure 104/71 (mmHg) O2 Sat by Pulse 90 89 94 Oximetry 03/03/19 03/03/19 03/03/19 14:34 15:00 15:01 Temperature 98.6 F 98.6 F 98.6 F Pulse Rate 93 80 79 Respiratory 26 21 20 Rate Blood Pressure 89/58 79/63 (mmHg) O2 Sat by Pulse 96 94 94 Oximetry Oxygen Devices in Use Now: BiPAP Appearance: weak, arousable, follows simple commands Eyes: PERRLA Neck: NL Appearance and Movements; NL JVP Respiratory: - - poor inspiratory effort, mixed rhonchi and rales bilaterally Cardiovascular: NL Sounds; No Murmurs; No JVD, RRR Abdominal: NL Sounds; No Tenderness; No Distention Extremities: No Edema Skin: No Rash or Ulcers Neurological: - - alert to person and place Result Diagrams: 03/03/19 01:09 03/03/19 01:09 Additional Lab and Data: Laboratory Tests 03/03/19 03/03/19 03/03/19 01:09 01:09 01:09 INR (Anticoag Therapy) 1.03 APTT 35.9 D-Dimer, Quantitative > 1050 H ABG pH ABG pCO2 ABG pO2 Glucose 120 H Lactic Acid 0.7 Calcium 10.1 Magnesium 1.5 L B-Natriuretic Peptide Albumin 3.9 Urine Color Urine Appearance Ur Specific Gaylord Urine Blood Urine Nitrate Ur Leukocyte Esterase 03/03/19 03/03/19 03/03/19 01:09 02:25 02:36 INR (Anticoag Therapy) APTT D-Dimer, Quantitative ABG pH 7.18 L* ABG pCO2 82 H* ABG pO2 93 Glucose Lactic Acid Calcium Magnesium B-Natriuretic Peptide 177 H Albumin Urine Color Yellow Urine Appearance Turbid Ur Specific Gaylord 1.015 Urine Blood 1+ A Urine Nitrate Positive A Ur Leukocyte Esterase 3+ A Microbiology and Other Data: Microbiology 03/03/19 04:25 Nasal Screen MRSA (PCR) - Final Nasal Mrsa Not Detected Diagnostic Imaging: LT hip: subcapital fracture CXR: increased interstitial markings compared 08/2017 *[facility]* [place] [address] Fax #: [phone] Transthoracic Echocardiogram Patient: Regina Sweet : 1940 Study Date: 03/03/2019 Age: 78 Gender: F HR: 100 bpm Height: 60 in /152.4 cm BSA: 1.74 m^2 Weight: 169.6 lb /77.1 kg BMI: 33.2 kg/m^2 *Sinter Machine Operator: * Karly Cobb [facility] RDMS *Referring Physician: * Yrn Samano-Paul D *Reading Physician: * Douglas Samuel MD Indications: Congestive Heart Failure. History: PAD. Chronic obstructive pulmonary disease. The patient uses supplemental oxygen at night. Conclusions Summary: - Left ventricle: The cavity size is moderately reduced. Wall thickness is moderately increased. Systolic function is hyperdynamic. The estimated ejection fraction is 65-70%. Wall motion is normal; there are no regional wall motion abnormalities. - Functionally benign heart valves. - There is no prior echocardiogram available to compare with at this time. Study data: Transthoracic echocardiogram. Procedure: Transthoracic echocardiography was performed. Image quality was poor. The study was technically limited due to restricted patient mobility, Patient on Bipap, and COPD. Intravenous Definity , 3 mls was administered. Image enhancement administered by Esther Obando RN. Complete 2D, spectral Doppler, and color flow Doppler. This report is only to be considered final once signed by the Provider(s) as displayed in the "<Electronically Signed by >" field (s). Absence of a signature indicates the report is in a draft status and still needs to be finalized. In the event this document was created by someone other than the signing Provider, the individual initiating the document will be listed in the "Entered by:" or "Dictated by:" lee. EKG Data: NSR, normal axis, T-wave inversions V3-V6 Assess/Plan/Problems-Billing Assessment: This is a 78 year old woman with history of COPD, presenting with fall, LT hip fracture, and hypoxia. - Patient Problems (1) Acute respiratory failure with hypoxia and hypercarbia Code(s): J96.01 - ACUTE RESPIRATORY FAILURE WITH HYPOXIA; J96.02 - ACUTE RESPIRATORY FAILURE WITH HYPERCAPNIA SNOMED Code(s): 150395293 Comment: - Follow up blood gas with not much improvement and significant desaturations on nasal canula - Sats adequate on bipap, will continue to titrate - No PE, likely combination of CHF and COPD exacerbation, may also be early consolidation - continue nebs, steroids, ceftriaxone/azithro - ECHO with intact LV function and no valvular disease, does not appear to be cardiac driven process (2) Fracture of left hip Code(s): S72.002A - FRACTURE OF UNSP PART OF NECK OF LEFT FEMUR, INIT SNOMED Code(s): 490680892 Comment: - Subcapital fracture, Dr. Lombardi following from ortho - NWB - Pain control - Will need hemiarthroplasty when medically optimized, however, pulmonary status is too tenuous to undergo anesthesia - Will continue to optimize, if we can wean off bipap, will clear for OR (3) Tachycardia Code(s): R00.0 - TACHYCARDIA, UNSPECIFIED SNOMED Code(s): 0090014 Comment: - Tachycardia resolved - ECHO shows intact LV function - Troponinemia likely 2/2 demand in presence of respiratory failure (4) ABE (acute kidney injury) Code(s): N17.9 - ACUTE KIDNEY FAILURE, UNSPECIFIED SNOMED Code(s): 94846668 Comment: - Had ABE last year with FeNa showing ATN 2/2 diuretic use, however may have onset of CKD sometime in 2017 - Monitor renal function - Avoid nephrotoxic agents (5) HTN (hypertension) Current Visit: No Status: Acute Code(s): I10 - ESSENTIAL (PRIMARY) HYPERTENSION SNOMED Code(s): 28098302 Comment: - SBP 130-150s. - Resume spironolactone and hctz. Resume lisinopril. (6) DVT prophylaxis Code(s): WFE3182 - SNOMED Code(s): 929059496 Comment: - Very high risk - SCDs + HSQ (7) DNR (do not resuscitate) Comment: - Confirmed DNR/DNI, patient does not have to reverse to have surgery Status and Disposition: Inpatient, condition: Guarded/critical Critical care time 70 minutes.
[2019-03-03] MEDS ORDERED: Morphine PCA ADULT* 5 MG/ML 30 ML PCA SCH (20:00)
[2019-03-04 00:07] VITALS: BP 70/50
--- NOTE | 2019-03-04 04:16 | DS ---
CC: Dr. Andino; Dr. Samuel; Dr. Erik Lombardi * SUMMARY: DATE OF ADMISSION: 03/03/19 DATE OF : 03/04/19 TIME OF : 1:16 a.m. PRIMARY CARE PROVIDER: Dr. Andino. CAUSE OF : 1. Acute respiratory failure due to pneumonia. 2. Hip fracture after a fall at home. HOSPITALIZATION COURSE: Regina Sweet was a 78-year-old female with history of COPD, who presented to the hospital after a fall with a left hip fracture. Apparently, the patient has had problems with upper respiratory infection in the recent past and shortness of breath. She was noted to have large consolidation on her right lung according to the CT angiogram obtained at admission. The patient was a do not resuscitate. She was admitted to acute hypercapnic respiratory failure to the intensive care unit and placed on BiPAP within the limitations of her do not resuscitate and do not intubate. Unfortunately, despite the use of BiPAP for several hours, her ABG continued to worsen and her pH continued to be lower. At approximately 8 p.m. on 03/03/19, the patient's family was notified that the patient was failing BiPAP. At this point, they continued to request do not resuscitate and do not intubate, but they agreed to comfort care measures. The patient was placed on morphine and she was pronounced at 1:16 a.m. on 03/04/19. At this point, she was noted to have no spontaneous respirations and no heart beat on evaluation. Her pupils were white, wide and dilated and her skin was cool to touch. Once again, she was pronounced in the intensive care unit. The family was not interested in autopsy. Due to that, as the patient came in after fractured hip at home as well as her within 24 hours of admission, Dr. Wagner, the medical secretary receptionist was notified and released the body to the morgue. Please note that this is a short summary of the patient's hospitalization. Please refer to full medical record for details. [id number] #: [id number] MTDD
== END 2019-03-04 01:16 | disposition expired | DRG 189 ==
LOC: ED 00:34 → ICU 02:44
PROVIDERS: ADMIT Internal Medicine; ATTEND Internal Medicine
PROC: 5A09357 Assistance with Respiratory Ventilation, Less than 24 Consecutive Hours, Continuous Positive Airway Pressure (ICD-10-PCS; principal; 2019-03-03)
DX: J96.01 Acute respiratory failure with hypoxia (principal); S72.012A Unspecified intracapsular fracture of left femur, initial encounter for closed fracture; J18.9 Pneumonia, unspecified organism; J44.1 Chronic obstructive pulmonary disease with (acute) exacerbation; N17.9 Acute kidney failure, unspecified; J44.0 Chronic obstructive pulmonary disease with (acute) lower respiratory infection; E87.2 Acidosis; J96.02 Acute respiratory failure with hypercapnia; I73.9 Peripheral vascular disease, unspecified; I12.9 Hypertensive chronic kidney disease with stage 1 through stage 4 chronic kidney disease, or unspecified chronic kidney disease; E78.5 Hyperlipidemia, unspecified; N18.9 Chronic kidney disease, unspecified; M54.30 Sciatica, unspecified side; W01.0XXA Fall on same level from slipping, tripping and stumbling without subsequent striking against object, initial encounter; M19.90 Unspecified osteoarthritis, unspecified site; Z66 Do not resuscitate; R00.0 Tachycardia, unspecified; E78.00 Pure hypercholesterolemia, unspecified; G43.909 Migraine, unspecified, not intractable, without status migrainosus; F32.9 Major depressive disorder, single episode, unspecified; Z85.820 Personal history of malignant melanoma of skin; Z88.8 Allergy status to other drugs, medicaments and biological substances; Z87.891 Personal history of nicotine dependence; Y92.009 Unspecified place in unspecified non-institutional (private) residence as the place of occurrence of the external cause
CPT/HCPCS: 36415; 36600; 71045; 71275; 80053; 81003; 81015; 82803; 83605; 83735; 83880; 84484; 85025; 85379; 85610; 85730; 86850; 86900; 86901; 87077; 87086; 87186; 87641; 93005; 93306; 96374; 96375; 99285; A9270-GY; C8929; J0456; J0696; J1644; J1940; J2270; J2405; J2930; J3475; Q9967